=== PATIENT | female | born 2000 | race Caucasian/White ===

== ENCOUNTER 2023-08-12 00:29 | Emergency (ER) | payer MEDICAID, SELFPAY ==
[2023-08-12 00:34] VITALS: BP 98/40; PULSE 54; RESP 16; TEMP 36.8; O2SAT 98; BMI 23.1
[2023-08-12 00:53] LABS: Appearance Urine Clear; Color Urine Orange; Glucose Urine UA Negative (Negative); Leukocyte Esterase Urine Moderate (2+) (Negative); Nitrite Urine Positive (Negative); PH 5.5 (5.0-9.0); UMIC TRIGGER UACC YES; Urine Blood Negative (Negative); Urine Ketones Negative (Negative); Urine Protein Trace mg/dL (Neg-Trace)
[2023-08-12 01:04] LABS: Bacteria Urine None Seen (None Seen); Hyaline Casts Urine 0-2 /LPF (0-2); UACC Culture Trigger YES
== END 2023-08-12 01:54 | disposition left against medical advice (07) ==
PROVIDERS: Emergency Provider Emergency Medicine
DX: R30.0 Dysuria (principal); Z79.899 Other long term (current) drug therapy
CPT/HCPCS: 81001; 87086; 87088; 87186; 99282

== ENCOUNTER 2023-08-20 00:11 | Emergency (ER) | payer MEDICAID, SELFPAY ==
[2023-08-20 00:21] VITALS: BP 102/61; PULSE 72; RESP 18; TEMP 36.8; O2SAT 99; BMI 26.7
[2023-08-20 00:36] VITALS: BP 96/57; PULSE 74; RESP 16; TEMP 36.7; O2SAT 100
--- NOTE | 2023-08-20 00:41 | ED_ITS ---
HPI - General Adult General Chief complaint: Vaginal Bleeding Stated complaint: Possibly ? Vaginal issues Time Seen by Provider: 08/20/23 00:28 Source: patient History of Present Illness HPI narrative: 22-year-old female who denies significant past medical history, , presents complaining of pelvic cramping, vaginal spotting and a positive test. Patient states that she is actively trying to get . Today while she was sexually active with her significant other, she noticed she was having some spotting during intercourse. She denies any dyspareunia. She denies have any other spotting or bleeding since then. Patient states that 1 week ago she had urinary frequency. She was seen at our urgent care, diagnosed with UTI and placed on Bactrim for 3 days. Patient states her symptoms had resolved after that time. She also reports having a negative test at that time. She denies any fevers or chills. She does report intermittent episodes of nausea but no vomiting. She anticipates her menses to begin this Tuesday. Related Data Home Medications Medication Instructions Recorded Confirmed No Known Home Meds 01/26/21 01/26/21 Allergies Allergy/AdvReac Type Severity Reaction Status Date / Time No Known Allergies Allergy Verified 01/26/21 12:11 Review of Systems Review of Systems: Constitutional: No Weight loss, No Fever, No Chills, No Night Sweats, No Fatigue, No Malaise Cardiovascular: No Chest Pain, No SOB, No Edema, No Palpitations Respiratory: No Cough, No Sputum, No Dyspnea Gastrointestinal: No Nausea, No Vomiting, No Diarrhea, No Constipation, + Abdominal pain Genitourinary: No irregular bleeding, No Dysuria, No Hematuria, No Flank Pain Musculoskeletal: No joint pain, No Myalgias, No Joint Swelling PMF Past Medical History Medical History Unprotected sex Family History Family History Mother No problems noted. Father Unknown family medical history Son Biotin deficiency disease Social History Social History Alcohol intake: current Alcohol intake frequency: a few times a week Alcohol type: wine Smoked in Last 30 Days: No Use of substances other than those prescribed or required for medical reasons: No Advance Directives: No Advance Directives Information Provided: No Physical Exam ED Vital Signs: Vital Signs - 24 hr 08/20/23 00:21 08/20/23 00:36 Temperature 98.3 F 98.1 F Pulse Rate 72 74 Respiratory Rate 18 16 Blood Pressure 102/61 96/57 L Pulse Oximetry 99 100 Oxygen Delivery Method Room Air Room Air BMI result Body Mass Index 26.7 Const General: cooperative Resp Effort & Inspection: normal respiratory effort Auscultation: clear to auscultation bilaterally Cardio Rate: regular rate Rhythm: regular rhythm GI Other: Abdomen is diffusely soft and nontender. There is no peritoneal signs. No CVAT. Skin General skin exam: no rashes or lesions noted Psych Appearance: grossly normal Course Course Course Narrative: 1:15 a.m., August 20, 2023 urine hCG is negative. Urinalysis and quant are pending at this time. Reevaluation(s) Reevaluation #1: Reviewed urinalysis and urine as well as beta quant results with the patient and her significant other. Patient is not based on these lab values today. Patient has not had any vaginal bleeding or spotting while in the emergency department. She feels comfortable with discharge plan home will follow up with her OBGYN as needed. She will continue to monitor. No further questions at this time. Time: 01:35 Medical Decision Making Medical Decision Making [facility] Narrative: A 22-year-old female , with a positive home test, and associated vaginal spotting during intercourse today presents the emergency department for further evaluation. Check hCG and UA. Discussed with Dr. Diana who agrees with plan. Consider pelvic US however, if , likely very early but will wait for quant to determine. Differential Diagnosis Differential Diagnoses: The differential diagnosis associated with the presentation includes Ectopic UTI Menses Lab Data Labs: Lab Results 08/20/23 Range/Units 00:54 Beta HCG, Quant < 2 mIU/mL Urine Color Yellow Urine Appearance Clear Urine pH 7.5 (5.0-9.0) Ur Specific [place] 1.025 (1.005-1.025) Urine Protein Negative (Neg-Trace) mg/dL Urine Glucose (UA) Negative (Negative) mg/dL Urine Ketones Negative (Negative) mg/dL Urine Blood Moderate (2+) H (Negative) Urine Nitrite Negative (Negative) Ur Leukocyte Esterase Trace H (Negative) Urine RBC 0-2 (0-2) /HPF Urine WBC 0-5 (0-5) /HPF Ur Squamous Epith Cells 6-10 (0-2) /HPF Urine Bacteria Trace (None Seen) Hyaline Casts 0-2 (0-2) /LPF Urine Test NEGATIVE (NEGATIVE) Discharge Plan Discharge Clinical Impression: Abnormal vaginal bleeding Patient Disposition: Home, Self-Care Instructions: Menorrhagia (ED) Additional Instructions: Both your urine test and blood test are NEGATIVE today. Follow-up with your OBGYN. Follow-up with your primary care provider. Call this week to schedule a follow- up appointment. Return to the emergency department if you have any worsening of symptoms, or any concerns. Get well soon! Prescriptions: No Action No Known Home Meds
--- NOTE | 2023-08-20 00:42 | PC.NURSE ---
ed provider at bedside for primary eval; tech attempting to obtain lab work. pt reports spotting with chunks and lower abd. cramping onset today; + test at home. last menstruation 07/27/23. pt reports nausea denies v/d/cp/sob. pt reports recently finished po abx for uti; denies urinary sx at this time.
[2023-08-20 01:03] LABS: Appearance Urine Clear; Color Urine Yellow; Glucose Urine UA Negative (Negative); Leukocyte Esterase Urine Trace (Negative); Nitrite Urine Negative (Negative); PH 7.5 (5.0-9.0); Specific Gravity - Urine 1.025 (1.005-1.025); UMIC TRIGGER UACC YES; Urine Blood Moderate (2+) (Negative); Urine Ketones Negative (Negative); Urine Protein Negative (Neg-Trace)
[2023-08-20 01:05] LABS: UPreg QC Valid YES; Urine Pregnancy NEGATIVE (NEGATIVE)
[2023-08-20 01:27] LABS: HCG Quantitative < 2 mIU/mL
[2023-08-20 01:28] LABS: Bacteria Urine Trace (None Seen); Hyaline Casts Urine 0-2 /LPF (0-2); RBC Urine 0-2 /HPF (0-2); WBC Urine 0-5 /HPF (0-5)
--- OUTSIDE RECORDS SUMMARY | 2023-08-20 01:30 | XMS_ITS | Continuity of Care Document ---
Author Name Unknown Organization [facility] ter Address [address] [place] [id number]- Care Team Providers Care Ultrasonographer Name Role Phone Not on Staff, PCP Primary Care Physician Unavail able Encounter [facility] [place] Date(s): 08/30/22 - 08/30/[address] [id number]- Discharge Disposition: A-D/C Walkout Attending Physician: Not on Staff, Attending MD Admitting Physician: Not on Staff, Admitting MD Referring Physician: Not on Staff, Referring MD Allergies, Adverse Reactions, Alerts No Known Allergies Medications docusate-senna 50 mg-187 mg oral tablet 1 tablet, By Mouth, Daily at bedtime, # 60 tablet, 0 Refills, Maintenance, 09/10/20 10:01:00 EDT, Tablet, [id number], 1 tablet By Mouth Daily at bedtime, 150, cm, 09/09/20 3:08:00 EDT, Height, 81.5, kg, 09/09/20 3:08:00 EDT, Dry Weight Start Date: 09/10/20 Status: Ordered metroNIDAZOLE 500 mg oral tablet 1 tablet = 500 mg, By Mouth, Every 12 hours, # 10 tablet, 0 Refills, Maintenance, 09/10/20 9:20:00 EDT, Tablet, [id number], 150, cm, 09/09/20 3:08:00 EDT, Height, 81.5, kg, 09/09/20 3:08:00 EDT, Dry Weight Start Date: 09/10/20 Stop Date: 09/15/20 Status: Ordered MiraLax oral powder for reconstitution = 17 Gm, By Mouth, Daily, dissolve in water before taking, # 255 Gm, 0 Refills, Maintenance, 09/10/20 10:01:00 EDT, REC Powder, [id number], 17 Gm By Mouth Daily,Instr:dissolve in water beforetaking, 150, cm, 09/09/20 3:08:00 EDT, Height, 81.5... Start Date: 09/10/20 Status: Ordered PNV By Mouth, Daily, 0 Refills, Maintenance, 09/09/20 19:44:00 EDT Start Date: 09/09/20 Status: Ordered Vital Signs Most recent to oldest [Reference Range]: 1 Oxygen Saturation [94-100 %] 100 % (08/30/22 1:57 PM) Pulse Rate [55-90 bpm] 80 bpm (08/30/22 1:57 PM) Blood Pressure [90-138/55-84 mm Hg] 105/ 65mm Hg (08/30/22 1:57 PM) Respiratory Rate [16-30 br/min] 18 br/mi n (08/30/22 1:57 PM) Temperature [96.8-100.4 DegF] 98.0 DegF (08/30/22 1:57 PM) Mode of Delivery (Oxygen) Room air (08/30/22 1:57 PM) Blood pressure sites Arm, left (08/30/22 1:57 PM) Temperature Route Oral (08/30/22 1:57 PM) Social History Social History Type Response Sex Female Patient Care team information Personnel Name: Not on Staff, PCP
--- OUTSIDE RECORDS SUMMARY | 2023-08-20 01:31 | XMS_ITS | Continuity of Care Document ---
Author Name Unknown Organization [facility] ter Address [address] [place] [id number]- Care Team Providers Care Principal Quality Engineer Name Role Phone Not on Staff, PCP Primary Care Physician Unavail able [place] [facility] [place]/09[place] - 09/10/[address] [id number]- [facility] Discharge Disposition: A-D/C Home Attending Physician: Sandie Lim MD Admitting Physician: Sandie Lim MD Referring Physician: Sandie Lim MD Allergies, Adverse Reactions, Alerts Substance Reaction Severity Status NKA Active Medications docusate-senna 50 mg-187 mg oral tablet [...] Most recent to oldest [Reference Range]: 1 2 3 Height 150 cm (09/09/20 3:00 AM) Weight 81.5 kg (09/09/20 3:00 AM) Oxygen Saturation [94-100 %] 98 % (09/09/20 7:38 PM) 100 % (09/09/20 5:53 PM) 98 % (09/09/20 3:00 PM) Pulse Rate [55-90 bpm] 111 bpm *H* (09/09/20 3:00 AM) Body Mass Index [18.5-24.99] 36.22 *>HHI* (09/09/20 3:00 AM) Blood Pressure [71-110/30-71 mm Hg] 104/61mm Hg (09/10/20 8:56 AM) 89/50mm Hg (09/10/20 5:42 AM) 100/60mm Hg (09/09/20 7:38 PM) Respiratory Rate [16-30 br/min] 20 br/min (09/09/20 3:00 AM) Temperature [96.8-100.4 DegF] 98.3 DegF (09/10/20 8:56 AM) 98.0 DegF (09/10/20 5:42 AM) 98.1 DegF (09/09/20 5:53 PM) Blood pressure sites Arm, left (09/09/20 3:00 AM) Temperature Route Oral (09/10/20 8:56 AM) Oral (09/10/20 5:42 AM) Oral (09/09/20 5:53 PM) Dry Weight 81.5 kg (09/09/20 3:00 AM) Weight Obtained Via Patient/family state d (09/09/20 3:00 AM) Dry Weight Obtained Via Patient/family s tated (09/09/20 3:00 AM) Social History Social History Type Response Sex Female
== END 2023-08-20 01:45 | disposition home or self-care (01) ==
PROVIDERS: Emergency Provider Student in an Organized Health Care Education/Training Program
DX: N93.9 Abnormal uterine and vaginal bleeding, unspecified (principal)
CPT/HCPCS: 36415; 81001; 81003; 81025; 84702; 99283; 99284

== ENCOUNTER 2023-09-20 | Outpatient (REF) | payer MEDICAID, SELFPAY ==
[2023-09-21 12:02] LABS: Appearance Urine Turbid; Color Urine Yellow; Glucose Urine UA Negative (Negative); Leukocyte Esterase Urine Moderate (2+) (Negative); Nitrite Urine Negative (Negative); PH 8.5 (5.0-9.0); Specific Gravity - Urine 1.025 (1.005-1.025); UMIC TRIGGER UACC YES; Urine Blood Small (1+) (Negative); Urine Ketones Negative (Negative); Urine Protein 30 (1+) mg/dL (Neg-Trace)
[2023-09-21 12:04] LABS: Bacteria Urine 2+ (None Seen); Hyaline Casts Urine 0-2 /LPF (0-2); Squamous Epithelial Cell Urine 0-2 /HPF (0-2); UACC Culture Trigger YES; WBC Urine >50 /HPF (0-5)
== END 2023-09-20 00:01 | disposition home or self-care (01) ==
LOC: HO.HHCLNP
PROVIDERS: Visit Provider Internal Medicine
DX: N30.01 Acute cystitis with hematuria (principal)
CPT/HCPCS: 81001; 81003; 87086; 87088; 87186

== ENCOUNTER 2024-02-04 14:24 | Emergency (ER) | payer MEDICAID, SELFPAY ==
[2024-02-04 14:48] VITALS: BP 120/59; PULSE 56; RESP 18; TEMP 36.3; O2SAT 100; BMI 30.9
--- NOTE | 2024-02-04 14:48 | ED_ITS ---
HPI - General Adult General Chief complaint: Urogenital-Female Stated complaint: pelvic pain Time Seen by Provider: 02/04/24 16:17 Source: patient Mode of arrival: ambulatory Limitations: no limitations History of Present Illness HPI narrative: 23 year old female, , with no significant past medical history presents to the ED today for evaluation of vaginal dryness x7 months. States that it is painful to have intercourse due to the lack of natural vaginal lubrication. She has been trying over the counter lubricants without success. She is sexually active with her partner only. She does not use protection as they are trying to conceive however adds that over the past year she has had difficulty conceiving. Not on hormonal control. Her last child was born in 2021. No complications. LMP 1 month ago. Denies any miscarriages. She has not followed up with her OBGYN regarding any of these symptoms or concerns. She denies concern for STDs and does not wish to be tested at this time. Denies fever, chills, dysuria, hematuria, vaginal discharge, vaginal lesions, irregular vaginal bleeding. Vaccinations UTD. Related Data Home Medications Medication Instructions Recorded Confirmed No Known Home Meds 01/26/21 01/26/21 Allergies Allergy/AdvReac Type Severity Reaction Status Date / Time No Known Allergies Allergy Verified 02/04/24 14:51 Review of Systems Review of Systems: Constitutional: No fever, chills, fatigue, night sweats, weight changes ENT/Mouth: No ear pain, hearing loss, nasal congestion, sinus pain, rhinorrhea, sore throat Eyes: No eye pain, swelling, redness, vision changes, discharge Cardio: No chest pain, palpitations, RAZO, orthopnea, peripheral edema Pulm: No SOB, cough, sputum, wheezing, dyspnea, hemoptysis GI: No nausea, vomiting, hematemesis, abdominal pain, diarrhea, constipation, hematochezia, melena : No irregular bleeding, dysuria, frequency, urgency, hesitancy, hematuria, flank pain, urinary flow changes, urinary incontinence or retention, +vaginal dryness MSK: No back pain, neck pain, joint pain, myalgias Skin: No lesions, rashes Neuro: No weakness, numbness, paresthesias, LOC, dizziness, headache Psych: No anxiety/panic, depression, SI/HI, AH/VH All other systems reviewed and are negative. [facility] Past Medical History Attestation statement: The following information was validated with the patient. Source: old records reviewed and nursing notes reviewed Medical History Unprotected sex Family History Family History Mother No problems noted. Father Unknown family medical history Son Biotin deficiency disease Social History Social History Alcohol intake: current Alcohol intake frequency: a few times a week Alcohol type: wine Advance Directives: No Advance Directives Information Provided: No Physical Exam ED Vital Signs: Vital Signs - 24 hr 02/04/24 14:48 02/04/24 16:56 Temperature 97.3 F 97.8 F Pulse Rate 56 60 Respiratory Rate 18 16 Blood Pressure 120/59 L 115/60 Pulse Oximetry 100 Oxygen Delivery Method Room Air BMI result Body Mass Index 30.9 Vital signs stable, afebrile Const General: cooperative, healthy appearing, comfortable and no acute distress Orientation/consciousness: patient oriented x3 Limitations: no limitations HENMT Head: Yes normal to inspection, Yes normocephalic and Yes atraumatic Eyes General: appearance normal, both eyes and all related structures Conjunctivae: conjunctivae normal Sclerae: sclerae normal Pupils: Equal, round and reactive pupils present Neck Neck: Yes normal visual inspection, Yes full ROM and Yes no lymphadenopathy GI Other: + abdomen soft, nondistended, nontender to palpation, no rebound or guarding. Normoactive bowel sounds x4. Bladder not palpable. Other: + pelvic exam deferred per patient General: Yes no CVA tenderness Back/Spine/Pelvis Back: no CVA tenderness Skin General skin exam: no rashes or lesions noted Neuro General: patient oriented x3 and gait normal Cranial nerves: Yes Equal, round and reactive pupils present Extrem General: Yes normal to inspection Course Course Course Narrative: This is a rapid medical exam: Additional HPI, ROS, PE not included below will be deferred to primary provider. Patient is a 23-year-old female presenting to the ED with complaint of dyspaeunia for the past 6 months. Feels tearing sensation to inside of vagina. Denies bleeding or abnormal discharge. Complains of vaginal dryness. Gave 02/12/22. 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 Plan: will need pelvic exam, UA, urine Reevaluation(s) Reevaluation #1: 1634-- urine is negative for both infection and . I had an in-depth discussion with both patient and her partner. I offered to perform pelvic exam today however patient is requesting this be deferred today until she follows up with product info specialist. She is not concern for any sexually transmitted infections and is declining testing today. I advised her to follow-up with her OBGYN regarding vaginal dryness as etiology may be hormonal. Given inability to conceive for the past year, she will require further workup by OBGYN that can not be performed in the ED today. I have provided her with a referral to [facility] gynecology if she is unable to get in with her current doctor. Patient has remained stable throughout ED visit today. Discussed worrisome signs and symptoms and when to return to the ED. All questions answered at this time. Patient is agreeable with disposition and stable for discharge. Medical Decision Making Medical Decision Making [facility] Narrative: 23 year old female, , with no significant past medical history presents to the ED today for evaluation of vaginal dryness x7 months. Vital signs are stable. She is nontoxic appearing in no acute distress. Abdomen is soft, nondistended, nontender to palpation, normoactive bowel sounds x4. No CVAT. Pelvic exam deferred per patient. Differential diagnosis includes atrophic vaginitis, hormonal imbalance, sexually transmitted infection. Low suspicion for PID, UTI, pyelo, . Differential Diagnosis Differential Diagnoses: The differential diagnosis associated with the presentation includes As above Admission/Observation Not indicated Lab Data [facility] Lab Attestation statement: I reviewed the patient's lab results. As above Labs: Lab Results 02/04/24 Range/Units 15:21 Urine Color Yellow Urine Appearance Clear Urine pH 7.0 (5.0-9.0) Ur Specific [place] 1.025 (1.005-1.025) Urine Protein Negative (Neg-Trace) mg/dL Urine Glucose (UA) Negative (Negative) mg/dL Urine Ketones Negative (Negative) mg/dL Urine Blood Negative (Negative) Urine Nitrite Negative (Negative) Ur Leukocyte Esterase Negative (Negative) Urine Test NEGATIVE (NEGATIVE) Independent Historian Clinical information obtained from an independent historian. History obtained from or confirmed by: Spouse (Partner) Social Determinants Patient?s care significantly limited by Social Determinants of Health including: Other Social Determinant of Health Discharge Plan Discharge Clinical Impression: Vaginal dryness Patient Disposition: Home, Self-Care Additional Instructions: Your urine was negative for infection and . Please follow-up with your primary care provider and OBGYN regarding symptoms. If you are unable to get in with your product info specialist, a referral has been provided to you. You may call them to establish care. Please return with new or worsening symptoms. The case of an emergency call 911. Prescriptions: No Action No Known Home Meds Referrals: Jorge Roberto MD [Physician] - Interventions: ED Discharge Assessment Last Done: 02/04/24 16:56 Discharge Date/Time: 02/04/24 17:00
[2024-02-04 15:31] LABS: Appearance Urine Clear; Color Urine Yellow; Glucose Urine UA Negative (Negative); Leukocyte Esterase Urine Negative (Negative); Nitrite Urine Negative (Negative); Specific Gravity - Urine 1.025 (1.005-1.025); Urine Blood Negative (Negative); Urine Ketones Negative (Negative); Urine Protein Negative (Neg-Trace)
[2024-02-04 15:34] LABS: UPreg QC Valid YES; Urine Pregnancy NEGATIVE (NEGATIVE)
[2024-02-04 16:56] VITALS: BP 115/60; PULSE 60; RESP 16; TEMP 36.6
== END 2024-02-04 17:00 | disposition home or self-care (01) ==
PROVIDERS: Registered Nurse Emergency; Emergency Provider Internal Medicine
DX: N90.9 Noninflammatory disorder of vulva and perineum, unspecified (principal)
CPT/HCPCS: 81003; 81025; 99282

== ENCOUNTER 2024-03-20 19:52 | Emergency (ER) | payer MEDICAID, SELFPAY ==
[2024-03-20 21:03] VITALS: BP 118/69; PULSE 69; RESP 16; TEMP 35.9; O2SAT 97
[2024-03-20 21:59] LABS: Appearance Urine Clear; Color Urine Yellow; Glucose Urine UA Negative (Negative); Leukocyte Esterase Urine Negative (Negative); Nitrite Urine Negative (Negative); PH 5.5 (5.0-9.0); Specific Gravity - Urine >= 1.030 (1.005-1.025); Urine Blood Negative (Negative); Urine Ketones 40 mg/dL (Negative); Urine Protein Negative (Neg-Trace)
[2024-03-21 01:29] VITALS: BP 118/60; PULSE 65; RESP 16; TEMP 36.4; O2SAT 99
--- NOTE | 2024-03-21 02:31 | ED.FEMALEGU ---
HPI - Female Genitourinary General Chief complaint: Urogenital-Female Stated complaint: chlamydia test Time Seen by Provider: 03/21/24 02:20 Source: patient Mode of arrival: ambulatory Limitations: no limitations History of Present Illness HPI Narrative: Patient comes to the emergency room concerned that recently on March 16 she tested positive for chlamydia induced. Patient states that 10 months ago when she got tested, she was negative. Patient's tested negative for chlamydia. The couple is arguing about infidelity. Both of them already being treated with antibiotics for chlamydia. They would like to be retested. Patient is adamant that she did not have sexual relations with anybody other than her . Patient has no symptoms other than the vaginal itching which she was diagnosed with bacterial vaginosis. Related Data Home Medications ?Medication ?Instructions ?Recorded ?Confirmed No Known Home Meds 01/26/21 01/26/21 Allergies Allergy/AdvReac Type Severity Reaction Status Date / Time No Known Allergies Allergy Verified 03/20/24 21:06 Review of Systems Review of Systems: Constitutional : No Weight loss, No Fever, No Chills, No Night Sweats, No Fatigue, No Malaise ENT/Mouth : No Hearing loss, No Ear Pain, No Nasal Congestion, No Sinus Pain, No Hoarseness, No sore throat, No Rhinorrhea, No Swallowing Difficulty Eyes: No Eye Pain, No Swelling, No Redness, No Foreign Body, No Discharge, No Vision Changes Cardiovascular : No Chest Pain, No SOB, No Dyspnea on Exertion, No Orthopnea, No Edema, No Palpitations Respiratory : No Cough, No Sputum, No Wheezing, No Smoke Exposure, No Dyspnea Gastrointestinal : No Nausea, No Vomiting, No Diarrhea, No Constipation, No abdominal Pain, No Hematochezia, No Melena Genitourinary : vaginal itching which she is already being treated, No Dysuria, No Urinary Frequency, No Hematuria, No Urinary Incontinence, No Urgency, No Flank Pain, No Urinary Flow Changes, No Hesitancy Musculoskeletal : No joint pain, No Myalgias, No Joint Swelling Skin : No Skin Lesions, No rash Neuro : No Weakness, No Numbness, No Paresthesias, No Loss of Consciousness, No Dizziness, No Headache Psych : No Anxiety/Panic, No Depression, No SI/HI/AH/VH, No Social Issues, Heme/Lymph: No Bruising, No Bleeding,No Lymphadenopathy Endocrine : No Polyuria, No Polydipsia, No Temperature Intolerance [facility] Past Medical History Medical History Unprotected sex Family History Family History Mother No problems noted. Father Unknown family medical history Son Biotin deficiency disease Social History Social History Alcohol intake: current Alcohol intake frequency: a few times a week Alcohol type: wine Smoked in Last 30 Days: No Use of substances other than those prescribed or required for medical reasons: No Do you have a plan to hurt others: No Plan Patient : No Physical Exam Vital Signs: Vital Signs: Last Vital Signs Temp 97.6 F 03/21/24 01:29 Pulse 65 03/21/24 01:29 Resp 16 03/21/24 01:29 BP 118/60 03/21/24 01:29 Pulse Ox 99 03/21/24 01:29 O2 Del Method Room Air 03/21/24 01:29 BMI result Body Mass Index s Const: Other: Appearance: Alert. Oriented X3. No acute distress. Eyes: Pupils equal, round and reactive to light. ENT: Pharynx normal. Neck: Normal inspection. Neck supple. No lymph nodes noted. No crepitus CVS: Normal heart rate and rhythm. Pulses normal. Normal S1 and S2 Respiratory: No respiratory distress. Breath sounds normal. No Wheezing. No rales Abdomen: Soft and nontender. No rigidity. No distention. Skin: Skin warm and dry. Normal skin color. Normal skin turgor. Extremities: No lower extremity edema. No Lacerations. No Rash Neuro: Oriented X 3. No motor deficit. No sensory deficit. Moving all extremities. No slurred speech. CN 2 through 12 grossly intact Psych: calm, cooperative, normal affect Medical Decision Making Medical Decision Making [facility] Narrative: - ptient states that she and her are already being treated. However, they her having marital problems because she tested positive for chlamydia. I discussed with the patient that sometimes tests can be false positives. It is possible also that the 1st time that the patient was treated, she was not positive yet and then turned positive and she has been a carry since then. This course of action at this time is to repeat the test. Both parties agreeable with getting retested - both patient and her are already being treated, no need for further treatment at this time. Serology labs will be pending for couple of days. Couple aware. Lab Data Labs: Lab Results 03/20/24 Range/Units 21:46 Urine Color Yellow Urine Appearance Clear Urine pH 5.5 (5.0-9.0) Ur Specific [place] >= 1.030 H (1.005-1.025) Urine Protein Negative (Neg-Trace) mg/dL Urine Glucose (UA) Negative (Negative) mg/dL Urine Ketones 40 (Negative) mg/dL Urine Blood Negative (Negative) Urine Nitrite Negative (Negative) Ur Leukocyte Esterase Negative (Negative) Discharge Plan Discharge Clinical Impression: Sex counseling Prescriptions: No Action No Known Home Meds Print Language: Bulgarian
[2024-03-21 03:01] VITALS: BP 119/68; PULSE 72; RESP 18; TEMP 36.6; O2SAT 98
[2024-03-21 12:21] LABS: CT PCR DETECTED (Not Detect.); NG PCR NOT DETECTED (Not Detect.)
--- NOTE | 2024-03-23 09:12 | ED_ITS ---
HPI - Female Genitourinary General Chief complaint: Urogenital-Female Stated complaint: chlamydia test Time Seen by Provider: 03/21/24 02:20 Source: patient Mode of arrival: ambulatory Limitations: no limitations Related Data Home Medications ?Medication ?Instructions ?Recorded ?Confirmed No Known Home Meds 01/26/21 01/26/21 Allergies Allergy/AdvReac Type Severity Reaction Status Date / Time No Known Allergies Allergy Verified 03/20/24 21:06 [facility] Past Medical History Medical History Unprotected sex Family History Family History Mother No problems noted. Father Unknown family medical history Son Biotin deficiency disease Social History Social History Alcohol intake: current Alcohol intake frequency: a few times a week Alcohol type: wine Smoked in Last 30 Days: No Use of substances other than those prescribed or required for medical reasons: No Advance Directives: No Advance Directives Information Provided: No Do you have a plan to hurt others: No Plan Patient : No Physical Exam Vital Signs: Vital Signs: Last Vital Signs Temp 97.9 F 03/21/24 03:01 Pulse 72 03/21/24 03:01 Resp 18 03/21/24 03:01 BP 119/68 03/21/24 03:01 Pulse Ox 98 03/21/24 03:01 O2 Del Method Room Air 03/21/24 01:29 BMI result Body Mass Index s Course Reevaluation(s) Reevaluation #1: Patient + for CT --> she is on doxy now sent by OBGYN supposed to finish atbx on Tuesday. Advised to follow up with PCP and OBGYN and to practice safe sexual practices. State mandated form filled out. Time: 09:15 Medical Decision Making Lab Data Labs: Lab Results 03/20/24 Range/Units 21:46 Urine Color Yellow Urine Appearance Clear Urine pH 5.5 (5.0-9.0) Ur Specific Story >= 1.030 H (1.005-1.025) Urine Protein Negative (Neg-Trace) mg/dL Urine Glucose (UA) Negative (Negative) mg/dL Urine Ketones 40 (Negative) mg/dL Urine Blood Negative (Negative) Urine Nitrite Negative (Negative) Ur Leukocyte Esterase Negative (Negative) Chlam trachomat DNA PCR DETECTED A (Not Detect.) N.gonorrhoeae DNA (PCR) NOT DETECTED (Not Detect.) Discharge Plan Discharge Clinical Impression: Sex counseling, Chlamydia Patient Disposition: Home, Self-Care Instructions: Safe Sex Practices (ED) Prescriptions: No Action No Known Home Meds Interventions: ED Discharge Assessment Last Done: 03/21/24 03:01 Discharge Date/Time: 03/21/24 03:02 Print Language: Setswana
== END 2024-03-21 03:02 | disposition home or self-care (01) ==
PROVIDERS: Emergency Provider Emergency Medicine
DX: A74.9 Chlamydial infection, unspecified (principal)
CPT/HCPCS: 0353U; 81003; 99283; 99284

== ENCOUNTER 2024-09-12 12:38 | Outpatient (REF) | payer MEDICAID, SELFPAY ==
[2024-09-12 13:27] LABS: MANUAL DIFF FLAG NO
[2024-09-12 13:36] LABS: Basophils Percent Auto 0.5 % (0-2); Eosinophils Absolute Auto 0.1 X10*3/uL (0.0-0.4); Eosinophils Percent Auto 1.2 % (0-4); Hematocrit 38.8 % (37.0-47.0); Hemoglobin 12.8 g/dl (12.0-16.0); Imm Gran Abs Auto 0.01 X10*3/uL (0.00-0.03); Imm Gran Pct Auto 0.2 % (0.0-0.4); Lymphocytes Absolute Auto 2.4 X10*3/uL (1.2-4.9); Lymphocytes Percent Auto 36.5 % (20-40); Mean Corpuscular Hemoglobin 28.4 pg (27.0-33.0); Mean Corpuscular Volume 86.2 fL (80.0-98.0); Mean Platelet Volume 11.2 fL (9.4-12.3); Monocytes Absolute Auto 0.4 X10*3/uL (0.1-1.2); Monocytes Percent Auto 5.6 % (2-11); Neutrophils Absolute Auto 3.7 x10*3/uL (2.0-8.3); Platelet Count 243 X10*3/uL (160-400); Red Cell Distribution Width 12.7 % (11.0-16.0); White Blood Count 6.6 X10*3/uL (4.8-10.8)
[2024-09-12 14:38] LABS: Ferritin 15 ng/mL (10-122); TSH reflex Free T4 0.63 uIU/mL (0.32-4.0)
[2024-09-12 14:50] LABS: Folate 12.1 ng/mL (> or = 4.0); Vitamin B12 567 pg/mL (200-900)
[2024-09-13 08:33] LABS: Syphilis Screen Nonreactive (Nonreactive)
[2024-09-13 14:33] LABS: Bacterial Vaginosis PCR POSITIVE (Negative); Candida Group PCR DETECTED (Not Detect); Candida glab krusei PCR NOT DETECTED (Not Detect); Trichomonas vaginalis PCR NOT DETECTED (Not Detect)
[2024-09-13 14:45] LABS: CT PCR NOT DETECTED (Not Detect.); NG PCR NOT DETECTED (Not Detect.)
== END 2024-09-12 12:39 | disposition home or self-care (01) ==
LOC: HO.HHCL 12:38
PROVIDERS: Visit Provider Internal Medicine
DX: R53.82 Chronic fatigue, unspecified (principal); N94.10 Unspecified dyspareunia
CPT/HCPCS: 0352U; 36415; 82607; 82728; 82746; 84443; 85025; 86780; 87491; 87591

== ENCOUNTER 2025-03-15 14:31 | Emergency (ER) | payer MEDICAID, SELFPAY ==
[2025-03-15 14:34] VITALS: BP 112/69; PULSE 77; RESP 18; TEMP 37; O2SAT 97; BMI 30.7
[2025-03-15 15:08] LABS: MANUAL DIFF FLAG NO
[2025-03-15 15:10] LABS: Basophils Percent Auto 0.3 % (0-2); Eosinophils Absolute Auto 0.1 X10*3/uL (0.0-0.4); Eosinophils Percent Auto 1.4 % (0-4); Hematocrit 41.7 % (37.0-47.0); Hemoglobin 13.9 g/dl (12.0-16.0); Imm Gran Abs Auto 0.01 X10*3/uL (0.00-0.03); Imm Gran Pct Auto 0.2 % (0.0-0.4); Lymphocytes Absolute Auto 2.6 X10*3/uL (1.2-4.9); Lymphocytes Percent Auto 43.2 % (20-40); Mean Corpuscular HGB Conc 33.3 g/dl (31.0-35.0); Mean Corpuscular Hemoglobin 28.3 pg (27.0-33.0); Mean Corpuscular Volume 84.8 fL (80.0-98.0); Mean Platelet Volume 10.7 fL (9.4-12.3); Monocytes Absolute Auto 0.3 X10*3/uL (0.1-1.2); Monocytes Percent Auto 4.2 % (2-11); Neutrophils Percent Auto 50.7 % (45-73); Platelet Count 236 X10*3/uL (160-400); Red Blood Count 4.92 X10*6/uL (4.20-5.50); White Blood Count 5.9 X10*3/uL (4.8-10.8)
[2025-03-15 15:31] LABS: Alanine Aminotransferase 26 U/L (0-31); Albumin Level 4.4 g/dL (3.5-5.0); Anion Gap 12 (12-20); Aspartate Amino Transferase 24 U/L (5-31); Bilirubin Total 0.3 mg/dL (0.0-1.0); Blood Urea Nitrogen 13 mg/dL (9-16); Calcium 9.4 mg/dL (8.4-10.2); Carbon Dioxide 26 mmol/L (22-29); Chloride 106 mmol/L (96-108); Creatinine Clr Calc Pharmacy 140.2; Estimated Glomerular Filt Rate > 60; Glucose Random 90 mg/dL (60-115); HCG Quantitative < 2 mIU/mL; Sodium 140 mmol/L (135-145); Total Protein 7.4 g/dL (6.5-8.0)
[2025-03-15 16:00] LABS: Alkaline Phosphatase 86 U/L (39-117)
--- NOTE | 2025-03-15 16:17 | ED.GENADULT ---
HPI - General Adult General Chief complaint: General Medical Stated complaint: Late Period, Negative Test Time Seen by Provider: 03/15/25 15:45 Source: patient Mode of arrival: ambulatory Limitations: no limitations History of Present Illness ED Provider: BEBETO SHEARER PA-C HPI narrative: 24-year-old female presents to the ED today requesting blood test. She reports irregular menses over the past few months. At one point she was having a period every 2 weeks. She states she was supposed to start her period 14 days ago however is late. She reports 2- home test today. She would like to have her blood drawn to check for . She denies any physical concerns at present. She admits to unprotected intercourse with her one male partner. She is not on control. She denies fever, chills, abdominal pain/cramping, urinary symptoms, vaginal bleeding or discharge. Related Data Home Medications ?Medication ?Instructions ?Recorded ?Confirmed No Known Home Meds 01/26/21 01/26/21 Allergies Allergy/AdvReac Type Severity Reaction Status Date / Time No Known Allergies Allergy Verified 03/15/25 14:37 Review of Systems Review of Systems: Yes all other systems are reviewed and are negative PMFSH Past Medical History Attestation statement: The following information was validated with the patient. Source: old records reviewed and nursing notes reviewed Medical History Unprotected sex Family History Family History Mother No problems noted. Father Unknown family medical history Son Biotin deficiency disease Social History Social History Alcohol intake: current Alcohol intake frequency: a few times a week Alcohol type: wine Advance Directives: No Advance Directives Information Provided: No Physical Exam ED Vital Signs: Vital Signs - 24 hr 03/15/25 14:34 03/15/25 16:26 Temperature 98.6 F 98.6 F Pulse Rate 77 77 Respiratory Rate 18 18 Blood Pressure 112/69 112/69 Pulse Oximetry 97 97 Oxygen Delivery Method Room Air Room Air BMI result Body Mass Index 30.7 vital signs stable General: Well appearing, in no acute distress. Skin: Warm, dry, intact. No rashes or lesions. Head: Normocephalic, atraumatic. EENT: Hearing is intact b/l. Conjunctiva clear. PERRLA. EOM intact. Moist mucous membranes.? Cardiac: Chest wall symmetric. RRR. Lungs: Normal respiratory effort without accessory muscle use. CTA bilaterally Abdomen: Soft, non-tender, non-distended. No rebound tenderness or guarding. Positive BS x4. Ext: Upper and lower extremities atraumatic, without tenderness, deformity, swelling or erythema Neuro: AOx3. Normal speech. Ambulating with steady gait. Course Course Course Narrative: CBC without leukocytosis or left shift. No anemia. H&H stable. Chemistry without acute electrolyte abnormality requiring intervention. No GARY. Liver function WNL. Beta quant undetectable. > patient stable. No complaints. She has a follow up appointment with her PCP on April 03 to discuss fertility. advised to keep appointment. Patient has remained stable throughout ED visit today. Discussed worrisome signs and symptoms and when to return to the ED. All questions answered at this time. Patient is agreeable with disposition and stable for discharge. Medical Decision Making Medical Decision Making [facility] Narrative: 24-year-old female presents to the ED today requesting blood test. Vital signs stable. Afebrile. She is nontoxic appearing in no acute distress. Physical exam benign. Plan for basic labs, hCG, re-evaluation. Differential Diagnosis Differential Diagnoses: The differential diagnosis associated with the presentation includes as above. Admission/Observation Consideration of admission/observation: Escalation of care including admission/observation considered Lab Data [facility] Lab Attestation statement: I reviewed the patient's lab results. As above 03/15/25 15:04 03/15/25 15:03 Labs: Lab Results 03/15/25 03/15/25 Range/Units 15:03 15:04 WBC 5.9 (4.8-10.8) X10*3/uL RBC 4.92 (4.20-5.50) X10*6/uL Hgb 13.9 (12.0-16.0) g/dl Hct 41.7 (37.0-47.0) % MCV 84.8 (80.0-98.0) fL MCH 28.3 (27.0-33.0) pg MCHC 33.3 (31.0-35.0) g/dl RDW 13.0 (11.0-16.0) % Plt Count 236 (160-400) X10*3/uL MPV 10.7 (9.4-12.3) fL Immature Gran % (Auto) 0.2 (0.0-0.4) % Neut % (Auto) 50.7 (45-73) % Lymph % (Auto) 43.2 H (20-40) % Dyer % (Auto) 4.2 (2-11) % Eos % (Auto) 1.4 (0-4) % Baso % (Auto) 0.3 (0-2) % Lymph # (Auto) 2.6 (1.2-4.9) X10*3/uL Dyer # (Auto) 0.3 (0.1-1.2) X10*3/uL Eos # (Auto) 0.1 (0.0-0.4) X10*3/uL Baso # (Auto) 0.0 (0.0-0.2) X10*3/uL Abs Immat Gran (auto) 0.01 (0.00-0.03) X10*3/uL Absolute Neuts (auto) 3.0 (2.0-8.3) x10*3/uL Absolute Nucleated RBC 0.000 (0.0-0.012) X10*3/uL Nucleated RBC % (auto) 0.0 (0.0-0.2) /100WBC Sodium 140 (135-145) mmol/L Potassium 4.0 (3.3-5.1) mmol/L Chloride 106 (96-108) mmol/L Carbon Dioxide 26 (22-29) mmol/L Anion Gap 12 (12-20) BUN 13 (9-16) mg/dL Creatinine 0.69 (0.5-1.4) mg/dL Estim Creat Clear Calc 140.2 Estimated GFR > 60 Random Glucose 90 (60-115) mg/dL Calcium 9.4 (8.4-10.2) mg/dL Total Bilirubin 0.3 (0.0-1.0) mg/dL AST 24 (5-31) U/L ALT 26 (0-31) U/L Alkaline Phosphatase 86 (39-117) U/L Total Protein 7.4 (6.5-8.0) g/dL Albumin 4.4 (3.5-5.0) g/dL Beta HCG, Quant < 2 mIU/mL Social Determinants Patient?s care significantly limited by Social Determinants of Health including: Other Social Determinant of Health Critical Care Time Critical Care Time Critical Care Time: No Discharge Plan Discharge Clinical Impression: Irregular menses Patient Disposition: Home, Self-Care Additional Instructions: Your blood work today is reassuring. Your serum test is negative. Keep your appointment with your doctor on April 03. I have also provided you with a referral to an OBGYN. Call them to establish care. They will not call you. Return with any new or worsening symptoms. In the case of an emergency call 911. Prescriptions: No Action No Known Home Meds Referrals: Physician,Unknown J [Primary Care Provider] - Stand Alone Forms: Work/School Release Interventions: ED Discharge Assessment Last Done: 03/15/25 16:26 Discharge Date/Time: 03/15/25 16:26 Print Language: Lithuanian
[2025-03-15 16:26] VITALS: BP 112/69; PULSE 77; RESP 18; TEMP 37; O2SAT 97
== END 2025-03-15 16:26 | disposition home or self-care (01) ==
PROVIDERS: Physician Assistant Medical; Emergency Provider Emergency Medicine
DX: N92.6 Irregular menstruation, unspecified (principal)
CPT/HCPCS: 36415; 80053; 84702; 85025; 99282; 99283

== ENCOUNTER 2025-04-03 11:15 | Outpatient (REF) | payer MEDICAID, SELFPAY ==
--- OUTSIDE RECORDS SUMMARY | 2025-04-03 12:18 | XMS_ITS | Clinical Summary ---
Author Organization [employer] Address [address] [place] [address] [address] [place] [address] Care Team Providers Care Saturator Tender Name Role Phone Edith Steel MD Primary Care Provider Allergies No known active allergies Medications * This document contains information received from the source organization and may not represent a complete record from that organization. ibuprofen 800 MG tablet TOME RENETTA TABLETA FERNANDO VECES AL D A 02/14/2022 Active hydrocortisone (Anusol-HC) 2.5 % rectal creamIndication s:External hemorrhoid Insert into the rectum 2 times daily. 28 g 1 01/30/2025 Active Active Problems Problem Noted Date Diagnosed Date Encounter for Papanicolaou s mear for cervical cancer screening 04/03/2025 Assessment & Plan (04/03/2025 11:01 AM EDT): Pap smear performed today, obtained STI add on from pap plus BV panel Also ordered RPR, HIV, Hep C testing Plan to f/u with testing results. If normal, repeat pap in 3 years. Encounter for screening exam ination for sexually transmitted disease 04/03/2025 Healthcare maintenance 04/03/2025 Assessment & Plan (04/03/2025 11:03 AM EDT): Plan to obtain routine bloodwork including A1c due to irregular periods and recurrent BV/yeast. Plan to f/u with test results. 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 We will also rule out infectious cause for pain. Based on results will consider recurrent Vaginitis tx, dilators, or vaginal estrogen therapy. Assessment & Plan (09/12/2024 11:46 AM EDT): R/O vaginitis order BV and follow up Chlamydia test if cured. Advised to use lubricant gels. R/O depression and follow up with PCP. Acute cystitis with hematuria 09/20/2023 Assessment & Plan (09/20/2023 8:20 PM EDT): Rx macrobid x 7d, send urine for culture We discussed after postcoital hygiene, keep sexual toys cleaned if used. Vaginal discharge 05/06/2023 Assessment & Plan (09/20/2023 8:22 PM EDT): Not at this time. I advised her to [facility] to get vaginal swab as soon as she feels the fishy vaginal smell or any other vaginal issue. She was already treated for prema vaginitis 3m ago Education re STI check and rx if needed ( I told her to get STI tested, pending since last month). Assessment & Plan (05/06/2023 2:46 PM EDT): STD panel ordered counseling done I will treat empirically for yeast infection Patient will be contacted with results Chronic fatigue 02/08/2023 Assessment & Plan (09/12/2024 1:54 PM EDT): R/O chronic conditions such as anemia, Hypothyroidism, etc. It is most likely related to major depression, PHQ9 is 17, she feels safe at home, will refer to for further evaluation, follow up with me or PCP in 2-3 weeks. Advised to increase water intake, healthy meals, and exercise. FU re weight reduction with PCP, after labs are done Assessment & Plan (02/08/2023 12:07 PM EDT): Check TSH, CBC, BMP, Vit D Encouraged exercise and finding things that she was excited about for herself Astigmatism 08/10/2017 Overweight 08/10/2017 Assessment & Plan (02/08/2023 12:06 PM EDT): Pt wants to gain weight, educated that her weight is appropriate for her height She would like Ensure to gain weight, explained that eating proper nutrition, whole foods would be the overall healthiest thing for her Developmental academic disorder 01/21/2014 Encounters Date Type Department Care Team Description 04/03/2025 10:15 AM EDT Procedure Visit [facility] [address] [place] [address] James Laird CNP Encounter for Papanicolaou smear for cervical cancer screening (Primary Dx); Encounter for screening examination for sexually transmitted disease; Healthcare maintenance; Dyspareunia in female 04/03/2025 Travel 03/07/2025 Telephone [facility] [address] [place] [address] Edith Steel MD Chart Prep 02/14/2025 1:00 PM EDT Office Visit [facility] OPT[facility] [address] [place] [address] Baltazar, Norma, OD Myopia of both eyes (Primary Dx); 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 Travel 02/01/2025 Population Health Risk Score [facility] Department [address] [id number] Provider, Population Health Generic 01/30/2025 3:45 PM EDT Office Visit [facility] [address] [place] [address] James Laird CNP Irregular periods (Primary Dx); External hemorrhoid; Vaginal dryness 01/30/2025 Travel 01/29/2025 Telephone [facility] [address] [place] [address] Edith Steel MD No Show 01/24/2025 Telephone [facility] [address], [place] [phone] Edith Steel MD Nurse Triage from Last 3 Months Immunizations Immunization Administration Dates Next Due DTaP 06/13/2006 DTaP / Hep B / IPV 05/25/2005,04/13/2005, 005 HPV 9-Valent 10/08/2016 HPV, Quadrivalent 03/26/2014,01/21/2014 Hep A, ped/adol, 2 dose 12/27/2018,08/10/2017 Hep B, Adolescent or Pediatric 09/28/2005 Hib (HbOC) 04/13/2005,12/29/2004 IPV 09/28/2005 Influenza injectable quadriv alent preservative free 12/27/2018,08/10/2017 Influenza, IIV3, injectable 10/25/2011 MMR 09/28/2005,12/29/2004 Meningococcal MCV4P ACYW-135 12/27/2018,01/22/20 14 Pneumococcal Conjugate PCV 7 04/13/2005,12/29/19 05 Tdap 12/22/2021,07/24/2020,01/21/2014 Varicella 10/25/2011,04/13/2005 Social History Tobacco Use Types Packs/Day Years Used Date Smoking Tobacco: Never Passive Smoke Exposure: Never Smokeless Tobacco: Never Tobacco Cessation:Counseling Given: Not Answered Alcohol Use Standard Drinks/Week Comments Never 0 (1 standard drink = 0.6 oz pur e alcohol) Depression Answer Date Recorded Patient Health Questionnaire-9 Score 17 09/12/2024 Patient Health Questionnaire-9 Score 17 09/12/2024 Last PHQ-9: Questionnaire Data Not on file 1 Housing Stability Answer Date Recorded What is your housing situation today? I have fabi sing 12/27/[address] you li ve. Do you have problems with any of the following? None of the above 12/27/2023 Food Insecurity Answer Date Recorded Within the past 12 months, y ou worried that your food would run out before you got money to buy more: Never True 12/27/2023 Within the past 12 months,th e food you bought just didn't last and you didn't have enough money to get more: Never True 04/2024 Transportation Answer Date Recorded In the past 12 months, has l ack of transportation kept you from medical appts, meetings, work or from getting things needed for daily living? No 12/27/2023 Utilities Answer Date Recorded In the past 12 months, has t he electric, gas, oil or water company threatened to shut off services in your home? No 12/27/2023 Depression Answer Date Recorded Patient Health Questionnaire-2 Score 6 09/12/2024 Comments No Intention Date Recorded Ambivalent about becoming (find ing) 04/03/2025 Sex and Gender Information Value Date Recorded Sex Assigned at Female 09/20/2022 10:18 AM EDT Legal Sex Female 10:18 AM EDT Gender Identity Choose not to disclose 10:18 AM EDT Sexual Orientation Choose not to disclose 2021 10:18 AM EDT Last Filed Vital Signs Vital Sign Reading Time Taken Comments Blood Pressure 104/66 04/03/2025 10:15 AM EDT Pulse 65 04/03/2025 10:15 AM EDT Temperature 36.5 ??C (97.7 ??F) 04/03/2025 10:15 AM E DT Respiratory Rate 18 04/03/2025 10:15 AM EDT Oxygen Saturation 99% 04/03/2025 10:15 AM EDT Inhaled Oxygen Concentration - - Weight 85.3 kg (188 lb) 04/03/2025 10:15 AM EDT Height 152.4 cm (5') 04/03/2025 10:15 AM EDT Body Mass Index 36.72 04/03/2025 10:15 AM EDT Plan of Treatment Upcoming Encounters Date Type Department Care Team (Late st Contact Info) Description 04/19/2025 2:30 PM EDT Office Visit [facility] [address] [place] [phone] Edith Steel MD [address] [place] [phone] 04/23/2025 9:00 AM EDT Office Visit [facility] [address] [place] [phone] Alberta Domingo CNM [address] [place] [address] 06/17/2025 1:00 PM EDT Office Visit [facility] OPTOM[facility] [address] [place] [address] Norma Ledesma, OD [address] [place] [address] Health Maintenance Due Date Last Done Comments HIV Screening 2001 Alcohol/Substance Use Screening 2013 Meningococcal B Vaccine (1 of 2 - Standard) 2017 Hepatitis C Screening 2019 Pap Smear 2022 COVID-19 Vaccine ( season) 2024 Influenza Vaccine (#1) 2024 9, 08/10/2017, 10/25/2011 SDOH Screening 02/13/2025 02/14/2024 Chlamydia and Gonorrhea Screening 09/12/2025 09/12/2024, 03/20/2024, 05/06/2023 Depression Screening 09/12/2025 09/12/2024, 09/12/20 Family Planning (PISQ) 04/03/2026 04/03/2025 Tobacco Screening 04/03/2026 04/03/2025 DTaP/Tdap/Td Vaccines (8 - Td or Tdap) 12/22/2031 12/22/2021, 07/24/2020, 01/21/2014, Additional history exists Zoster Vaccines (1 of 2) 2051 RSV Patients and Patients Aged 60 years or older (1 - 1-dose 75+ series) 2076 HIB Vaccines Completed 04/13/2005, 12/29/2004 Pneumococcal Vaccine: Pediatrics (0 to 5 Years) and At-Risk Patients (6 to 49) Years) Aged Out 04/13/2005, 12/29/2004 No longer eligibl e based on patient's age to complete this topic Hepatitis B Vaccines Completed 09/28/2005, 05/25/2005, 04/13/2005, Additional history exists IPV Vaccines Completed 09/28/2005, 03/2005, 04/13/2005, Additional history exists HPV Vaccines Completed 10/08/2016, 04/2014, 01/21/2014 Hepatitis A Vaccines Completed 12/27/2018, 08/10/20 17 Meningococcal Vaccine Completed 12/27/2018, 014 RSV under 20 months Aged Out No longe r eligible based on patient's age to complete this topic Rotavirus Vaccines Aged Out No longer eligible based on patient's age to complete this topic Procedures Procedure Name Priority Date/Time Associated Diagnosis Comments OCT, OPTIC NERVE - OU - BOTH EYES Routine 02/14/2025 1:00 PM EDT Anomalous optic nerve (CMS/HCC) POCT , URINE Routine 01/30/2025 5:24 PM EDT Irregular periods CHLAMYDIA/N. GONORRHOEAE RNA, TMA, UROGENITAL Routine 09/12/2024 12:18 PM EDT Dyspareunia in female from Last 3 Months or Most Recently Relevant to Health Maintenance Results * OCT, Optic Nerve - OU - Both Eyes (02/14/2025 1:00 PM EDT) Narrative Norma Ledesma, OD - 02/26/2025 1:54 PM EDT Images from the original result were not included. Right Eye Images reviewed. To assess optic nerve function and for use in future follow-up. Reliability: good and adequate. Left Eye Images reviewed. To assess optic nerve function and for use in future follow-up. Reliability: good and adequate. Notes OCT OPTIC NERVE INTERPRETATION Optical Coherence Tomography Interpretation Report Test Details: Measurements: OD ??OS C/D Horizontal 0.18 ??0.00 C/D Vertical 0.14 ??0.00 Disc area 3.40 mm 2 ??4.40 mm 2 RNFL Average 148 microns ??144 microns ?? Test findings: OD: Overestimation of optic nerve size. Thicker than normal RNFL superior, temporal, and inferior quadrants, definite RNFL thinning in nasal quadrant (most likely due to tilted disc). Raised nasal edge secondary to likely PHOM (peripapillary hyper-reflective ovoid mass). OS: Overestimation of optic nerve size. Thicker than normal RNFL in all quadrants. Raised nasal edge secondary to likely PHOM (peripapillary hyper-reflective ovoid mass). 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 There are no associated ONH drusen today. Will have patient return in 4 months for a baseline visual field test to rule out any visual field defect associated with tilted optic nerve appearance. Norma Ledesma OD OPHTH TOMOGRAPHY Final Result * POCT Urine (01/30/2025 5:24 PM EDT) Preg Test, Ur Negative Negative, Indeterminate, None Detected, Invalid, Specimen unsatisfactory for evaluation, Weakly Positive QC Media Lot # [id number] Lot# Expiration Date [id number] Urine 01/30/2025 5:24 PM EDT [facility] POINT OF CARE TEST ENTER/ EDIT ORDERABLES Final Result * Chlamydia/N. Gonorrhoeae RNA, TMA, Urogenitial (09/12/2024 12:18 PM EDT) Pathologist [facility] CT PCR NOT DETECTED Not Detect. [facility] Comment:A not detected test result does not exclude the possibilityof infection because test results can be affected byimproper specimen collection, concurrent antibiotic therapy,or the number of organisms in the specimen which may bebelow the sensitivity of the test. As with many diagnostictests, results from the Xpert CT/NG assay should beinterpreted in conjunction with other laboratory andclinical data available to the clinician.Xpert CT/NG performance has not been evaluated in patientsless than 14 years of age. The assay should not be used forthe evaluationof suspected sexual abuse or for other medico-legalindications. Additional testing is recommended in anycircumstance when false positive or false negative resultscould lead to adverse medical, social or psychologicalconsequences. NG PCR NOT DETECTED Not Detect. [facility] Comment:A not detected test result does not exclude the possibilityof infection because test results can be affected byimproper specimen collection, concurrent antibiotic therapy,or the number of organisms in the specimen which may bebelow the sensitivity of the test. As with many diagnostictests, results from the Xpert CT/NG assay should beinterpreted in conjunction with other laboratory andclinical data available to the clinician.Xpert CT/NG performance has not been evaluated in patientsless than 14 years of age. The assay should not be used forthe evaluationof suspected sexual abuse or for other medico-legalindications. Additional testing is recommended in anycircumstance when false positive or false negative resultscould lead to adverse medical, social or psychologicalconsequences. Swab Vaginal structure / Unknown 09/12/2024 12:18 PM EDT 09/13/2024 2:51 PM EDT Narrative [facility] - 09/13/2024 2:51 PM EDT Vaginal us Lynne Carrington MD LAB MICROBIOLOGY - GENER AL ORDERABLES Final Result [facility] [address] [place] [address] [phone] from Last 3 Months or Most Recently Relevant to Health Maintenance Insurance [place], [place] [employer] * Guarantor: Larissa De La Garza Account Type Relation to Patient Date of Phone Billing Address Personal/Family Self [place], [place] * Guarantor: Larissa De La Garza Account Type Relation to Patient Date of Phone Billing Address Personal/Family Self [place], [place] Care Teams Saturator Tender Relationship Specialty Start Date End Date Edith Steel MD [address] [place] [address] PCP - General Family Medicine 01/28/21
--- OUTSIDE RECORDS SUMMARY | 2025-04-03 12:18 | XMS_ITS | Encounter Summary ---
Author Organization [employer] Address [address] [facility] [address] [place] [address] Care Team Providers Care Extension Service Specialist In Charge Name Role Phone Edith Steel MD Primary Care Provider [phone] Reason for Visit * Reason Onset Date Comments Nurse Triage 09/04/2024 Encounter Details Date Type Department Care Team ([facility] st Contact Info) Description 09/04/2024 Telephone [facility] [address] [place] [address] Edith Steel MD [address] [place] [address] Nurse Triage Social History Tobacco Use Types Packs/Day Years Used Date Smoking Tobacco: Never Passive Smoke Exposure: Never Smokeless Tobacco: Never Alcohol Use Standard Drinks/Week Comments Never 0 (1 standard drink = 0.6 oz pur e alcohol) Housing Stability Answer Date Recorded What is your housing situation today? I have fabi puga 12/27/[address] you li [...] off services in your home? No 12/27/2023 Comments Unknown Sex and Gender Information Value Date Recorded Sex Assigned at Female 09/20/2022 10:18 AM EDT Legal Sex Female 10:18 AM EDT Gender Identity Choose not to disclose 10:18 AM EDT Sexual Orientation Choose not to disclose 2021 10:18 AM EDT documented as of this encounter Miscellaneous Notes * Telephone Encounter - Gabrielle Charles RN - 09/04/2024 1:19 PM EDT Triage call Pt reports lethargy/tiredness for months now. Pt doesn't work and doesn't get any exercise. Pt is advised to take walks during the day for exercise and to increase liquids to 6-8 glasses daily. Pt agrees to try these things. Pt reports abdominal bloating and is constipated at times. Pt is advised to increase fresh fruits/vegetables and more fiber in diet and Pt agrees. Pt is also concerned about low lobido. Pt reports getting injured during intercourse and not enjoying that experience. ASK apt with Dr. Carrington 09/12/24 @ 1100am. Insurance is verified as active prior to booking.Pt agrees with disposition. Protocol Used: Weakness (Generalized) and Fatigue (Adult) Protocol-Based Disposition: See in Office or Video Visit within 2 Weeks Positive Triage Question: * Fatigue is a chronic symptom (recurrent or ongoing AND present > 4 weeks) * All higher-acuity triage questions were negative Care Advice Discussed: * Reassurance and Education - Mild Dehydration * Drink Fluids * Rest * Cool Off * Reasons To Call Back - Still feeling weak after 2 hours of rest and fluids - Passes out (faints) - You become worse * Telephone Encounter - Vaishnavi Heard - 09/04/2024 12:59 PM EDT Symptom: Lethargic (Tired) Outcome: Schedule an appointment to be seen within 3 days Reason: Caller denied all higher acuity questions The caller accepted this outcome. documented in this encounter Plan of Treatment Upcoming Encounters Date Type Department Care Team (Marty aguillon Contact Info) Description 04/19/2025 2:30 PM EDT Office Visit [facility] [address] [place] [address] Edith Steel MD [address] [place] [address] 04/23/2025 9:00 AM EDT Office Visit [facility] [address] [place] [address] Alberta Domingo, LALO [address] [place] [address] 06/17/2025 1:00 PM EDT Office Visit [facility] [address] [place] [address] Norma Ledesma, OD [address] [place] [address] documented as of this encounter Visit Diagnoses Not on filedocumented in this encounter Care Teams Extension Service Specialist In Charge Relationship Specialty Start Date End Date Edith Steel MD [address] [place] [address] PCP - General Family Medicine 01/28/21 documented as of this encounter
--- OUTSIDE RECORDS SUMMARY | 2025-04-03 12:18 | XMS_ITS | Encounter Summary ---
Author Organization [employer] Address [address] [facility] 7t [place] [address] Care Team Providers Care Shower Room Attendant Name Role Phone Edith Steel MD Primary Care Provider [phone] Encounter Details Date Type Department Care Team (Latest Contact Info) Description 04/03/2025 Travel Social History Tobacco Use Types Packs/Day Years [...] Health Questionnaire-2 Score 6 09/12/2024 Comments No Sex and Gender Information Value Date Recorded Sex Assigned at Female 09/20/2022 10:18 AM EDT Legal Sex Female 10:18 AM EDT Gender Identity Choose not to disclose 10:18 AM EDT Sexual Orientation Choose not to disclose 2021 10:18 AM EDT documented as of this encounter Plan of Treatment Upcoming Encounters Date Type Department Care Team (Late st Contact Info) Description 04/19/2025 2:30 PM EDT Office Visit [facility] [address] [place] [address] Edith Steel MD [address] [place] [address] 04/23/2025 9:00 AM EDT Office Visit [facility] [address] [place] [address] Alberta Domingo CNM [address] [place] [address] 06/17/2025 1:00 PM EDT Office Visit [facility] [address] [place] [address] Baltazar, Norma, OD [address] [place] [address] documented as of this encounter Visit Diagnoses Not on filedocumented in this encounter Additional Health Concerns Assessment Noted Time PHQ-9 Depression Total Score: 17 024 11:38 AM EDT documented as of this encounter Care Teams Shower Room Attendant Relationship Specialty Start Date End Date Edith Steel MD [address] [place] [id number] PCP - General Family Medicine 01/28/21 documented as of this encounter
--- OUTSIDE RECORDS SUMMARY | 2025-04-03 12:18 | XMS_ITS | Clinical Summary ---
Author Organization [facility] Address [address] [place] [address] Care Team Providers Care Motion Picture Operator Name Role Phone Unavailable Primary Care Provider Unavailabl e Surgical History Surgery Date Site/Laterality Comments OTHER SURGICAL HISTORY PROCEDURE: DENIES PREVIOUS SURGERY Medical History Medical History Date Comments Patient denies medical problems DX:Patient denies medical problems Family History Medical History Relation Name Comments No Known Problems Father No Known Problems Maternal Grandmother Lymphoma Mother No Known Problems Paternal Grandfather unsure/no conta ct Colon cancer Neg Hx Ovarian cancer Neg Hx Relation Name Status Comments Brother Alive Father Maternal Grandfather Maternal Grandmother Alive Mother Alive Paternal Grandfather unsure/no contact Other Paternal Grandmother Alive Sister Alive Social History Tobacco Use Types Packs/Day Years Used Date Smoking Tobacco: Never Smokeless Tobacco: Never Alcohol Use Standard Drinks/Week Comments No 0 (1 standard drink = 0.6 oz pur e alcohol) Comments Unknown Sex and Gender Information Value Date Recorded Sex Assigned at Not on file Legal Sex Female 2:32 PM EST Gender Identity Not on file Sexual Orientation Not on file Obstetrics History Last Filed Vital Signs Vital Sign Reading Time Taken Comments Blood Pressure 105/74 03/16/2024 3:15 PM EDT Pulse 68 03/16/2024 3:15 PM EDT Temperature - - Respiratory Rate - - Oxygen Saturation - - Inhaled Oxygen Concentration - - Weight 73.9 kg (163 lb) 03/16/2024 3:15 PM EDT Height 152.4 cm (5') 03/16/2024 3:15 PM EDT Body Mass Index 31.83 03/16/2024 3:15 PM EDT Plan of Treatment Health Maintenance Due Date Last Done Comments Gonorrhea/Chlamydia Screening 2001 HPV Vaccines (1 - 3-dose series) 2016 Meningococcal B Vaccine (1 o f 2 - Standard) 2017 Hepatitis B Vaccines (1 of 3 - 19+ 3-dose series) 2020 Cervical Cancer Screening: P ap Smear 2022 Depression Screening 10/20/2022 Hepatitis C Screening 10/20/2022 Social Influencers of Health Screening 10/20/2022 COVID-19 Vaccine (1 - 2023-2 5 season) 2024 Influenza Vaccine (Season Ended) 2025 DTaP,Tdap,and Td Vaccines (3 - Td or Tdap) 12/22/2031 12/22/2021, 07/24/2020 HIV Screening Completed 03/16/2024 HIB Vaccines Aged Out No longer eligi ble based on patient's age to complete this topic Hepatitis A Vaccines Aged Out No long er eligible based on patient's age to complete this topic IPV Vaccines Aged Out No longer eligi ble based on patient's age to complete this topic MMR Vaccines Aged Out No longer eligi ble based on patient's age to complete this topic Meningococcal ACWY Vaccine Aged Out N o longer eligible based on patient's age to complete this topic Pneumococcal Vaccine: Pediatrics (0 to 5 Years) and At-Risk Patients (6 to 64 Years) Aged Out No longer eligible b ased on patient's age to complete this topic RSV Immunization Patients Under 20 months Aged Out No longer eligible b ased on patient's age to complete this topic Varicella Vaccines Aged Out No longer eligible based on patient's age to complete this topic
--- OUTSIDE RECORDS SUMMARY | 2025-04-03 12:18 | XMS_ITS | Encounter Summary ---
Author Organization [employer] Address [address] [place] [address] 7t [place] [address] Care Team Providers Care Head Sulfide Operator Name Role Phone Edith Steel MD Primary Care Provider [phone] Encounter Details Date Type Department Care Team (Latest Contact Info) Description 04/03/2025 10:15 AM EDT Procedure Visit [facility] [address] [place] [address] James Laird CNP [address] [place], [place] [id number] Encounter for Papanicolaou smear for cervical cancer screening (Primary Dx); Encounter for screening examination for sexually transmitted disease; Healthcare maintenance; Dyspareunia in female Social History Tobacco Use Types Packs/Day Years [...] AM EDT documented as of this encounter Last Filed Vital Signs Vital Sign Reading [...] Mass Index 36.72 04/03/2025 10:15 AM EDT documented in this encounter Progress Notes * James Laird CNP - 04/03/2025 10:15 AM EDT Subjective Patient ID: Larissa De La Garza is a 24 y.o. adult who presents for well woman exam including pap. HPI Pt has hx of external hemorrhoids, vaginal dryness, and lack of sexual desire. She says that everytime she has sexual intercourse she tears right around the outside of the opening of her vaginal canal. She reports she has tried lubricants both silicone and water based and they don't last long enough . She reports sufficient foreplay. She does report she is able to reach orgasm but vaginal sensation leading up to that point is decreased. She reports that she has an AMAB monogamous partner x 2years and he is aware of issue. She feels safe in relationship. She does report that she is still experiencing the above sx and they are affecting her relationship. She would like to complete STI testing today, she is also requesting routine bloodwork. She reports hx of recurrent yeast/BV. LMP ended 03/28/25. She reports periods are irregular, she skipped a period in February. She reports some mild sharp pain in her left breast that comes and goes. She denies lumps, bumps, skin changes or nipple discharge. Review of Systems Genitourinary: Positive for dyspareunia, pelvic pain and vaginal pain. Negative for decreased urinevolume, difficulty urinating, dysuria, menstrual problem, urgency, vaginal bleeding and vaginal discharge. Objective Vitals: 04/03/25 1015 BP: 104/66 Pulse: 65 Resp: 18 Temp: 97.7 ??F (36.5 ??C) SpO2: 99% Physical Exam Constitutional: General: Larissa is not in acute distress. Appearance: Normal appearance. Larissa is normal weight. Larissa is not ill- appearing, toxic-appearing or diaphoretic. Genitourinary: Labia: Right: No rash, tenderness, lesion or injury. Left: No rash, tenderness, lesion or injury. Urethra: No prolapse, urethral pain, urethral swelling or urethral lesion. Vagina: Vaginal discharge, erythema and tenderness present. Cervix: Normal. No cervical motion tenderness, discharge, friability, lesion, erythema, cervical bleeding or eversion. Uterus: Normal. Adnexa: Right adnexa normal. Right: No mass, tenderness or fullness. Left: No mass, tenderness or fullness. Neurological: Mental Status: Larissa is alert. Psychiatric: Mood and Affect: Mood normal. Behavior: Behavior normal. Thought Content: Thought content normal. Judgment: Judgment normal. Assessment/Plan Problem List Items Addressed This Visit Dyspareunia in female Education provided by Alberta Domingo CNM regarding pelvic health stretches. We will also rule out infectious cause for pain. Based on results will consider recurrent Vaginitis tx, dilators, or vaginal estrogen therapy. Encounter for Papanicolaou smear for cervical cancer screening - Primary Pap smear performed today, obtained STI add on from pap plus BV panel Also ordered RPR, HIV, Hep C testing Plan to f/u with testing results. If normal, repeat pap in 3 years. Relevant Orders Pap Smear STI testing add on (NG, CT, Trich) Bacterial Vaginosis Panel Encounter for screening examination for sexually transmitted disease Relevant Orders STI testing add on (NG, CT, Trich) Bacterial Vaginosis Panel RPR (Monitor) with Reflex to Titer HIV-1/2 Antigen and Antibodies, Fourth Generation, with Reflexes Hepatitis C Antibody with Reflex to HCV, RNA, Quantitative, Real-Time PCR Healthcare maintenance Plan to obtain routine bloodwork including A1c due to irregular periods and recurrent BV/yeast. Plan to f/u with test results. Relevant Orders TSH W/Reflex to FT4 CBC auto differential Hemoglobin A1c Comprehensive Metabolic Panel Plan to f/u in 2 weeks with Alberta Domingo CNM [facility] ELEMENTARY ART TEACHER Attestation ELEMENTARY ART TEACHER Resident Attestation: Patient was seen and evaluated by James Laird CNP, in collaboration with Alberta Domingo CNM who has reviewed my assessment and plan. I, Alberta Domingo CNM , have reviewed the resident's note and agree with the assessment & plan of care as documented above. Addendum J LALO Domingo: Able to perform diaphragmatic breathing. Trigger point/tenderness midline lower abdomen, bilateral adductors. Vestibule tender from 4 to 7 oclock. Diffuse tenderness of all pelvic floor muscles. Taught diaphragmatic breathing and small ball stretch for abdominals and adductors. Given tennis ball. Do adductor and abdominal stretch 2 minutes daily. Work up to 10 diaphragmatic breaths 3x/day Will reassess in 2 weeks. documented in this encounter Miscellaneous Notes * Assessment & Plan Note - James Laird CNP - 04/03/2025 11:03 AM EDT Associated Problem(s): Healthcare maintenance Plan to obtain routine bloodwork including A1c due to irregular periods and recurrent BV/yeast. Plan to f/u with test results. * Assessment & Plan Note - James Laird CNP - 04/03/2025 11:02 AM EDT Associated Problem(s): Dyspareunia in female Education provided by Alberta Domingo CNM regarding pelvic health stretches. We will also rule out infectious cause for pain. Based on results will consider recurrent Vaginitis tx, dilators, or vaginal estrogen therapy. * Assessment & Plan Note - Jaems Laird CNP - 04/03/2025 11:01 AM EDT Associated Problem(s): Encounter for Papanicolaou smear for cervical cancer screening Pap smear performed today, obtained STI add on from pap plus BV panel Also ordered RPR, HIV, Hep C testing Plan to f/u with testing results. If normal, repeat pap in 3 years. documented in this encounter Plan of Treatment Upcoming Encounters Date Type Department Care Team (Late st Contact Info) Description 04/19/2025 2:30 PM EDT Office Visit [facility] [address] [place] [address] Edith Steel MD [address] [place] [address] 04/23/2025 9:00 AM EDT Office Visit [facility] [address] [place] [address] Alberta Domingo CNM [address] [place] [address] 06/17/2025 1:00 PM EDT Office Visit [facility] [address] [place] [address] Norma Ledesma, OD [address] [place] [address] Scheduled Orders Name Type Priority Associated Diagnoses Orde r Schedule Pap Smear Pathology and Cytology Routine Encounter for Papanicolaou smear for cervical cancer screening Ordered: 04/03/2025 STI testing add on (NG, CT, Trich) Pathology and Cytology Routine Encounter for Papanicolaou smear for cervical cancer screening Encounter for screening examination for sexually transmitted disease Ordered: 04/03/2025 Bacterial Vaginosis Panel Microbiology Routine Encounter for Papanicolaou smear for cervical cancer screening Encounter for screening examination for sexually transmitted disease Ordered: 04/03/2025 RPR (Monitor) with Reflex to??Titer Lab Routine Encounter for screening examination for sexually transmitted disease Expected: 04/03/2025, Expires: 04/03/2026 HIV-1/2 Antigen and Antibodies, Fourth Generation, with Reflexes Lab Routine Encounter for screening examination for sexually transmitted disease Expected: 04/03/2025 (Approximate), Expires: 04/03/2026 Hepatitis C Antibody with Reflex to HCV, RNA, Quantitative, Real-Time PCR Lab Routine Encounter for screening examination for sexually transmitted disease Expected: 04/03/2025, Expires: 04/03/2026 TSH W/Reflex to FT4 Lab Routine Healthcare maintenance Expected: 04/03/2025 (Approximate), Expires: 04/03/2026 CBC auto differential Lab Routine Healthcare maintenance Expected: 04/03/2025 (Approximate), Expires: 04/03/2026 Hemoglobin A1c Lab Routine Healthcare maintenance Expected: 04/03/2025 (Approximate), Expires: 04/03/2026 Comprehensive Metabolic Panel Lab Routine Healthcare maintenance Expected: 04/03/2025 (Approximate), Expires: 04/03/2026 documented as of this encounter Visit Diagnoses Diagnosis Encounter for Papanicolaou smear for cervical cancer screening- Primary Encounter for screening examination for sexually transmitted disease Healthcare maintenance Dyspareunia in female documented in this encounter Additional Health Concerns Assessment Noted Time PHQ-9 Depression Total Score: 17 024 11:38 AM EDT documented as of this encounter Care Teams Head Sulfide Operator Relationship Specialty Start Date End Date Edith Steel MD [address] [place] [address] PCP - General Family Medicine 01/28/21 documented as of this encounter
[2025-04-03 13:34] LABS: MANUAL DIFF FLAG NO
[2025-04-03 13:41] LABS: Red Blood Count 4.65 X10*6/uL (4.20-5.50); White Blood Count 5.4 X10*3/uL (4.8-10.8)
[2025-04-03 13:42] LABS: Basophils Percent Auto 0.6 % (0-2); Eosinophils Absolute Auto 0.1 X10*3/uL (0.0-0.4); Eosinophils Percent Auto 1.5 % (0-4); Hematocrit 39.9 % (37.0-47.0); Hemoglobin 13.1 g/dl (12.0-16.0); Imm Gran Abs Auto 0.01 X10*3/uL (0.00-0.03); Imm Gran Pct Auto 0.2 % (0.0-0.4); Lymphocytes Percent Auto 36.1 % (20-40); Mean Corpuscular HGB Conc 32.8 g/dl (31.0-35.0); Mean Corpuscular Hemoglobin 28.2 pg (27.0-33.0); Mean Corpuscular Volume 85.8 fL (80.0-98.0); Mean Platelet Volume 11.1 fL (9.4-12.3); Monocytes Absolute Auto 0.3 X10*3/uL (0.1-1.2); Monocytes Percent Auto 5.2 % (2-11); Neutrophils Absolute Auto 3.1 x10*3/uL (2.0-8.3); Neutrophils Percent Auto 56.4 % (45-73); Platelet Count 276 X10*3/uL (160-400); Red Cell Distribution Width 13.1 % (11.0-16.0)
[2025-04-03 13:56] LABS: Estimated Average Glucose 97 mg/dL; Hemoglobin A1C 109.7847 umol/L; Total Hemoglobin (HGBA1C) 3507.4709 umol/L
[2025-04-03 13:57] LABS: Alanine Aminotransferase 20 U/L (0-31); Albumin Level 4.3 g/dL (3.5-5.0); Alkaline Phosphatase 81 U/L (39-117); Anion Gap 11 (12-20); Aspartate Amino Transferase 29 U/L (5-31); Bilirubin Total 0.4 mg/dL (0.0-1.0); Blood Urea Nitrogen 11 mg/dL (9-16); Calcium 8.9 mg/dL (8.4-10.2); Carbon Dioxide 28 mmol/L (22-29); Chloride 106 mmol/L (96-108); Estimated Glomerular Filt Rate > 60; Glucose Random 89 mg/dL (60-115); Potassium 4.5 mmol/L (3.3-5.1); Sodium 140 mmol/L (135-145); Total Protein 7.1 g/dL (6.5-8.0)
[2025-04-03 14:15] LABS: TSH reflex Free T4 0.55 uIU/mL (0.32-4.0)
[2025-04-03 17:44] LABS: Bacterial Vaginosis PCR POSITIVE (Negative); Candida Group PCR DETECTED (Not Detect); Candida glab krusei PCR NOT DETECTED (Not Detect); Trichomonas vaginalis PCR NOT DETECTED (Not Detect)
[2025-04-04 08:10] LABS: HIV AB/AG Nonreactive (Nonreactive); HIV Num 1 0.06 S/CO (0.00-0.99); ~HepC Num1 0.07 S/CO (0.00-0.79); ~Hepatitis C Antibody Nonreactive (Nonreactive)
[2025-04-04 11:38] LABS: RPR Rapid Plasma Reagin NON-REACTIVE (NON-REACTIVE)
== END 2025-04-03 11:16 | disposition home or self-care (01) ==
LOC: HO.HHCL 11:15
DX: Z00.00 Encounter for general adult medical examination without abnormal findings (principal); Z12.4 Encounter for screening for malignant neoplasm of cervix; Z11.3 Encounter for screening for infections with a predominantly sexual mode of transmission
CPT/HCPCS: 36415; 80053; 81515; 83036; 84443; 85025; 86592; 86803; 87389

== ENCOUNTER 2025-04-03 12:59 | Outpatient (REF) | payer MEDICAID, SELFPAY ==
--- OUTSIDE RECORDS SUMMARY | 2025-04-04 13:14 | XMS_ITS | Encounter Summary ---
Author Organization [employer] Address [address] [place] [address] [address] [place] [address] Care Team Providers Care Hand Umbrella Tipper Name Role Phone Edith Steel MD Primary Care Provider [phone] Reason for Visit * Reason Onset Date Comments Results 04/04/2025 Encounter Details Date Type Department Care Team ([facility] st Contact Info) Description 04/04/2025 Results Follow-Up [facility] [address] [place] [address] James Laird, LAUNCH LEADER [address] [place] [address] Bacterial Vaginosis Panel, HIV-1/2 Antigen and Antibodies, Fourth Generation, with Reflexes, Hepatitis C Antibody with Reflex to HCV, RNA, Quantitative, Real-Time PCR, Additional followed-up results: 4 Social History Tobacco Use Types Packs/Day Years [...] encounter Miscellaneous Notes * Telephone Encounter - Jojo Hodge RN - 04/04/2025 9:11 AM EDT TC placed to pt per below provider messages. Advised pt of positive yeast and bacterial vaginosis results and that provider sent medications to the pharmacy for treatment. Advised pt provider recommends pt's partner seek treatment as well as it may help with symptoms and recurrence. Pt verbalized understanding and denies questions at this time. ----- Message from James Laird sent at 04/04/2025 8:56 AM EDT ----- Good morning please call patient and let her know that she tested positive for yeast and bacterial vaginosis. I will send oral diflucan and oral metronidazole for treatment today. You can let her know that we are still waiting on the rest of her lab results. Please let me know if there are any questions. Thank you! ----- Message from James Laird sent at 04/04/2025 9:02 AM EDT -----Also, you can recommend topatient that her partner seek treatment as well with a provider. If he is not an established patient, [facility]. Partner treatment may help withsymptoms and recurrence. Thank you! * Result Encounter Note - James Laird CNP - 04/04/2025 9:02 AM EDT Also, you can recommend to patient that her partner seek treatment as well with a provider. If he is not an established patient, places [facility] a good [facility]. Partner treatment may help with symptoms and recurrence. Thank you! * Result Encounter Note - Alberta Domingo CNM - 04/04/2025 9:00 AM EDT Sounds good! If partner is open to treatment for bacterial vaginosis and yeast that might be helpful. Glucose and LFTs are good, HIV neg. Could also consider weekly fluconazole 150mg x 12 weeks for yeast and/or twice weekly MetroGel x 12 weeks for bacterial vaginosis prevention. * Result Encounter Note - James Laird CNP - 04/04/2025 8:58 AM EDT Good morning, Pt tested pos for BV and yeast, I sent treatment for both. I think we can definitely have a conversation with her about recurrent treatment based on rest of pending results. Thank you for all your help! * Result Encounter Note - James Laird CNP - 04/04/2025 8:56 AM EDT Good morning please call patient and let her know that she tested positive for yeast and bacterial vaginosis. I will send oral diflucan and oral metronidazole for treatment today. You can let her know that we are still waiting on the rest of her lab results. Please let me know if there are any questions. Thank you! documented in this encounter Plan of Treatment Upcoming Encounters Date Type Department Care Team (Late st Contact Info) Description 04/19/2025 2:30 PM EDT Office Visit [facility] [address] [place] [address] Edith Steel MD [address] [place] [address] 04/23/2025 9:00 AM EDT Office Visit [facility] [address] [place] [address] Alberta Domingo, LALO [address] [place] [address] 06/17/2025 1:00 PM EDT Office Visit [facility] [address] [place] [address] Baltazar, Norma, OD [address] [place] [address] documented as of this encounter Visit Diagnoses Not on filedocumented in this encounter Additional Health Concerns Assessment Noted Time PHQ-9 Depression Total Score: 17 024 11:38 AM EDT documented as of this encounter Care Teams Hand Umbrella Tipper Relationship Specialty Start Date End Date Edith Steel MD [address] [place] [address] PCP - General Family Medicine 01/28/21 documented as of this encounter
--- OUTSIDE RECORDS SUMMARY | 2025-04-04 13:14 | XMS_ITS | Encounter Summary ---
Author Organization [employer] Address [address] [facility] [address]t [place] [address] Care Team Providers Care Linoleum Printer Name Role Phone Edith Steel MD Primary Care Provider [phone] Encounter Details Date Type Department Care Team [...] Description 04/19/2025 2:30 PM EDT Office Visit [facility] [address] [place] [address] Edith Steel MD [address] [place] [address] 04/23/2025 9:00 AM EDT Office Visit [facility] [address] [place] [address] Alberta Domingo CNM [address] [place] [address] 06/17/2025 1:00 PM EDT Office Visit [facility] [address] [place] [address] Baltazar, Norma, OD [address] [place] [address] documented as of this encounter Visit Diagnoses Not on filedocumented in this encounter Additional Health Concerns Assessment Noted Time PHQ-9 Depression Total Score: 17 024 11:38 AM EDT documented as of this encounter Care Teams Linoleum Printer Relationship Specialty Start Date End Date Edith Steel MD [address] [place] [phone] PCP - General Family Medicine 01/28/21 documented as of this encounter
--- OUTSIDE RECORDS SUMMARY | 2025-04-04 13:14 | XMS_ITS | Encounter Summary ---
Author Organization [employer] Address [address] [place] [address] 7 [place] [address] Care Team Providers Care Bi Manager Name Role Phone Edith Steel MD Primary Care Provider [phone] Encounter Details Date Type Department Care Team (Latest Contact Info) Description 04/03/2025 10:15 AM EDT Procedure Visit [facility] MEDICINE [address] [place] [address] Radha Laird CNP [address] [place], [place] [phone] Encounter for Papanicolaou smear for cervical cancer screening (Primary Dx); Encounter for screening examination for sexually transmitted disease; Healthcare maintenance; Dyspareunia in female; Chronic vaginitis Social History Tobacco Use Types Packs/Day Years [...] documented in this encounter Progress Notes * Radha Laird CNP - 04/03/2025 10:15 AM EDT [...] in 2 weeks with Alberta Domingo CNM [facility] VENEER SORTER Attestation 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 I, Alberta Domingo CNM , have reviewed the resident's note and agree with the assessment & plan of care as documented above. Addendum Connor Domingo CNM: Able to perform diaphragmatic breathing. Trigger point/tenderness [...] Notes * Assessment & Plan Note - Radha Laird CNP - 04/03/2025 11:03 AM EDT Associated Problem(s): Healthcare maintenance Plan to obtain routine bloodwork including A1c due to irregular periods and recurrent BV/yeast. Plan to f/u with test results. * Assessment & Plan Note - Radha Laird CNP - 04/03/2025 11:02 AM EDT Associated Problem(s): Dyspareunia in female Education provided by Alberta Domingo CNM regarding pelvic health stretches. We will also rule out infectious cause for pain. Based on results will consider recurrent Vaginitis tx, dilators, or vaginal estrogen therapy. * Assessment & Plan Note - Radha Laird CNP - 04/03/2025 11:01 AM EDT Associated Problem(s): Encounter for Papanicolaou smear for cervical cancer screening Pap smear performed today, obtained STI add on from pap plus BV panel Also ordered RPR, HIV, Hep C testing Plan to f/u with testing results. If normal, repeat pap in 3 years. * Addendum Note - Radha Laird CNP - 04/03/2025 10:15 AM EDTAddended by: RADHA LAIRD on: 04/04/2025 08:57 AM Modules accepted: Orders documented in this encounter Plan of Treatment Upcoming Encounters Date Type Department Care Team (Late st Contact Info) Description 04/19/2025 2:30 PM EDT Office Visit [facility] MEDICINE [address] [place] [phone] Edith Steel MD [address] [place] [phone] 04/23/2025 9:00 AM EDT Office Visit [facility] MEDICINE [address] [place] [phone] Alberta Domingo CNM [address] [place] [address] 06/17/2025 1:00 PM EDT Office Visit [facility] OPTOMETRY [address] [place] [address] BaltazarNorma dasilva, OD [address] [place] [address] Pending Results Name Type Priority Associated Diagnoses Date /Time RPR (Monitor) with Reflex to??Titer Lab Routine Encounter for screening examination for sexually transmitted disease 04/03/2025 11:18 AM EDT Scheduled Orders Name Type Priority Associated Diagnoses Orde r Schedule Pap Smear Pathology and Cytology Routine Encounter for Papanicolaou smear for cervical cancer screening Ordered: 04/03/2025 STI testing add on (NG, CT, Trich) Pathology and Cytology Routine Encounter for Papanicolaou smear for cervical cancer screening Encounter for screening examination for sexually transmitted disease Ordered: 04/03/2025 documented as of this encounter Procedures Procedure Name Priority Date/Time Associated Diagnosis Comments TSH W/REFLEX TO FT4 Routine 04/03/2025 1 1:18 AM EDT Healthcare maintenance CBC WITH AUTO DIFFERENTIAL Routine 04/03/2025 11:18 AM EDT Healthcare maintenance HEPATITIS C AB W/REFL TO HCV RNA, QN, PCR Routine 04/03/2025 11:18 AM EDT Encounter for screening examination for sexually transmitted disease RPR (MONITOR) W/REFL TITER Routine 04/03/2025 11:18 AM EDT Encounter for screening examination for sexually transmitted disease HIV 1/2 ANTIGEN/ANTIBODY, FOURTH GENERATION W/RFL Routine 04/03/2025 11:18 AM EDT Encounter for screening examination for sexually transmitted disease HEMOGLOBIN A1C Routine 04/03/2025 11:18 AM EDT Healthcare maintenance COMPREHENSIVE METABOLIC PANEL Routine 04/03/2025 11:18 AM EDT Healthcare maintenance BACTERIAL VAGINOSIS PANEL Routine 04/03/2025 10:41 AM EDT Encounter for Papanicolaou smear for cervical cancer screening Encounter for screening examination for sexually transmitted disease documented in this encounter Results * (ABNORMAL) Comprehensive Metabolic Panel (04/03/2025 11:18 AM EDT) Sodium 140 135 - 145 mmol/L [facility] Potassium 4.5 3.3 - 5.1 mmol/L [facility] Chloride 106 96 - 108 mmol/L [facility] Carbon Dioxide 28 22 - 29 mmol/L [facility] Anion Gap 11(L) 12 - 20 [facility] Urea Nitrogen (BUN) 11 9 - 16 mg/dL [facility] Creatinine, Serum 0.69 0.5 - 1.4 mg/dL [facility] Estimated Glomerular Filt Rate >60 [facility] Comment:Chronic Kidney Disea se: Estimated GFR < 60 mL/min/1.34f1Amuslf Kidney Disease: Estimated GFR < 15 mL/min/1.73m2 Glucose 89 60 - 115 mg/dL [facility] Calcium 8.9 8.4 - 10.2 mg/dL [facility] Bilirubin, Total 0.4 0.0 - 1.0 mg/dL [facility] Aspartate Amino Transferase 29 5 - 31 U/L [facility] Alanine Aminotransferase 20 0 - 31 U/L [facility] Total Protein 7.1 6.5 - 8.0 g/dL [facility] Albumin Level 4.3 3.5 - 5.0 g/dL [facility] Alkaline Phosphatase 81 39 - 117 U/L [facility] Blood Venous blood specimen / Unknown 04/03/2025 11:18 AM EDT 04/03/2025 1:26 PM EDT Maxsybil Laird MANAGER OF DIGITAL LAB BLOOD ORDERABLES Nicolasa l Result [facility] [address] [place] [phone] * Hemoglobin A1c (04/03/2025 11:18 AM EDT) Hemoglobin A1c 5.0 <6.0 % [facility] Comment:Hemoglobin A1C Refer ence Range Adults: 4.8 - 6.0 % Non diabetic: < 6.0 % Goal: < 7.0 %Additional Action Suggested: > 8.0 %Note: Hemoglobin A1c results are invalid for patients with abnormal amounts of HbF. Blood transfusions may impact the HbA1c concentration in the patient sample. Estimated Average Glucose 97 mg/dL [facility] Comment:eAG = Estimated ave rage glucose which is %A1C expressed asaverage glucose, using the formula of the S8P-OtuptgwVraenxn Glucose study (ADAG), Diabetes Care, Vol.31,#8,Jun. 2007 Blood Venous blood specimen / Unknown 04/03/2025 11:18 AM EDT 04/03/2025 1:26 PM EDT Maxsybil Laird [facility] LAB BLOOD ORDERABLES Nicolasa l Result [facility] [address] [place] [phone] * CBC auto differential (04/03/2025 11:18 AM EDT) White Blood Count 5.4 4.8 - 10.8 X10*3/uL [facility] Red Blood Count 4.65 4.20 - 5.50 X10*6/uL [facility] Hemoglobin 13.1 12.0 - 16.0 g/dl [facility] Hematocrit 39.9 37.0 - 47.0 % [facility] Mean Corpuscular Volume 85.8 80.0 - 98.0 fL [facility] Mean Corpuscular Hemoglobin 28.2 27.0 - 33.0 pg [facility] Mean Corpuscular HGB Conc 32.8 31.0 - 35.0 g/dl [facility] Red Cell Distribution Width 13.1 11.0 - 16.0 % [facility] Platelet Count 276 160 - 400 X10*3/uL [facility] Mean Platelet Volume 11.1 9.4 - 12.3 fL [facility] Neutrophils Percent Auto 56.4 45 - 73 % [facility] Imm Gran Pct Auto 0.2 0.0 - 0.4 % [facility] Lymphocytes Percent Auto 36.1 20 - 40 % [facility] Monocytes Percent Auto 5.2 2 - 11 % [facility] Eosinophils Percent Auto 1.5 0 - 4 % [facility] Basophils Percent Auto 0.6 0 - 2 % [facility] NRBC Pct Auto 0.0 0.0 - 0.2 /100WBC [facility] Neutrophils Absolute Auto 3.1 2.0 - 8.3 x10*3/uL [facility] Imm Gran Abs Auto 0.01 0.00 - 0.03 X10*3/uL [facility] Lymphocytes Absolute Auto 2.0 1.2 - 4.9 X10*3/uL [facility] Monocytes Absolute Auto 0.3 0.1 - 1.2 X10*3/uL [facility] Eosinophils Absolute Auto 0.1 0.0 - 0.4 X10*3/uL [facility] Basophils Absolute Auto 0.0 0.0 - 0.2 X10*3/uL [facility] NRBC Abs Auto 0.000 0.0 - 0.012 X10*3/uL [facility] Blood Venous blood specimen / Unknown 04/03/2025 11:18 AM EDT 04/03/2025 1:26 PM EDT [facility] LAB BLOOD ORDERABLES Nicolasa l Result [facility] [address] [place] [phone] * TSH W/Reflex to FT4 (04/03/2025 11:18 AM EDT) TSH reflex Free T4 0.55 0.32 - 4.0 uIU/mL [facility] Blood Venous blood specimen / Unknown 04/03/2025 11:18 AM EDT 04/03/2025 1:26 PM EDT [facility] LAB BLOOD ORDERABLES Nicolasa l Result Performing Organization Address [facility]/ZIP Co de Phone Number [facility] [address] [place] [phone] * Hepatitis C Antibody with Reflex to HCV, RNA, Quantitative, Real-Time PCR (04/03/2025 11:18 AM EDT) Hepatitis C Antibody Nonreactive Nonreactive [facility] Comment:Antibodies to HCV no t detected; does not exclude early acuteHCV infection. Blood Venous blood specimen / Unknown 04/03/2025 11:18 AM EDT 04/03/2025 1:26 PM EDT [facility] LAB BLOOD ORDERABLES Nicolasa l Result Performing Organization Address [facility] Co de Phone Number [facility] [address] [place] [phone] * HIV-1/2 Antigen and Antibodies, Fourth Generation, with Reflexes (04/03/2025 11:18 AM EDT) HIV AB/AG Nonreactive Nonreactive [facility] Comment:HIV-1 p24 Ag and/or HIV-1/HIV-2 Ab not detected.A test result that is nonreactive does not exclude thepossibility of exposure to or infection with HIV-1 and/orHIV-2. Nonreactive results in this assay for individualswith prior exposure to HIV-1 and/or HIV-2 may be due toantigen and antibody levels that are below the limit ofdetection of this assay.The [employer] HIV Ag/Ab Combo assay result andsupplemental assay results should be interpreted inconjunction with the patient's clinical presentation,history and other laboratory results. If the results areinconsistent with clinical evidence, additional testing issuggested to confirm the result. Blood Venous blood specimen / Unknown 04/03/2025 11:18 AM EDT 04/03/2025 1:26 PM EDT [facility] MANAGER OF DIGITAL LAB BLOOD ORDERABLES Nicolasa l Result Performing Organization Address [facility] Co de Phone Number [facility] [address] [place] [phone] * (ABNORMAL) Bacterial Vaginosis Panel (04/03/2025 10:41 AM EDT) TRICHOMONAS VAGINALIS DETECTION BY PCR NOT DETECTED Not Detect [facility] BACTERIAL VAGINOSIS DETECTION BY PCR POSITIVE(A) Negative [facility] Comment:The BV organism targ ets of the Xpert Xpress MVP test can becommensal in women; Xpert Xpress MVP positive results forbacterial vaginosis should be considered in conjunction withother clinical and patient information to determine thedisease status. Organisms that are not detected by the XpertXpress MVP test have also been reported to be associatedwith BV and aerobic vaginitis.The Xpert Xpress MVP test performance has not been evaluatedin patients under the age of 14. H[employer] DETECTION BY PCR DETECTED(A) Not Detect [facility] Henrietta glab krusei PCR NOT DETECTED Not Detect [facility] Swab Vaginal structure / Unknown 04/03/2025 10:41 AM EDT 04/03/2025 1:46 PM EDT [facility] LAB MICROBIOLOGY - GENERA L ORDERABLES Final Result Performing Organization Address [facility] Co de Phone Number [facility] [address] [place] [phone] documented in this encounter Visit Diagnoses Diagnosis Encounter for Papanicolaou smear for cervical cancer screening- Primary Encounter for screening examination for sexually transmitted disease Healthcare maintenance Dyspareunia in female Chronic vaginitis Unspecified vaginitis and vulvovaginitis documented in this encounter Additional Health Concerns Assessment Noted Time PHQ-9 Depression Total Score: 17 024 11:38 AM EDT documented as of this encounter Care Teams Bi Manager Relationship Specialty Start Date End Date Edith Steel MD [address] [place] [phone] PCP - General Family Medicine 01/28/21 documented as of this encounter
--- OUTSIDE RECORDS SUMMARY | 2025-04-04 13:14 | XMS_ITS | Encounter Summary ---
Author Organization [employer] Address [address] [facility] [address] [place] [address] Care Team Providers Care Material Damage Adjuster Name Role Phone Edith Steel MD Primary Care Provider Reason for Visit * Reason Onset Date Comments Nurse Triage 09/04/2024 Encounter Details Date Type Department Care Team ([facility] st Contact Info) Description 09/04/2024 Telephone [facility] MEDICINE [address] [place] [address] Edith Steel MD [address] [place] [address] Nurse Triage Social History Tobacco Use Types [...] Description 04/19/2025 2:30 PM EDT Office Visit [facility] MED[facility]INE [address] [place] [address] Edith Steel MD [address] [place] [address] 04/23/2025 9:00 AM EDT Office Visit [facility] MED[facility]INE [address] [place] [address] Alberta Domingo, LALO [address] [place] [address] 06/17/2025 1:00 PM EDT Office Visit [facility] OPTOMETRY [address] [place] [address] Norma Ledesma, OD [address] [place] [address] documented as of this encounter Visit Diagnoses Not on filedocumented in this encounter Care Teams Material Damage Adjuster Relationship Specialty Start Date End Date Edith Steel MD [address] [place] [address] PCP - General Family Medicine 01/28/21 documented as of this encounter
--- OUTSIDE RECORDS SUMMARY | 2025-04-04 13:14 | XMS_ITS | Clinical Summary ---
Author Organization [facility] Address [address] [place] [phone] Care Team Providers Care Administrative Support Associate Name Role Phone Unavailable Primary Care Provider [...]
--- OUTSIDE RECORDS SUMMARY | 2025-04-04 13:14 | XMS_ITS | Clinical Summary ---
Author Organization [employer] Address [address] [facility] [address] [place] [address] Care Team Providers Care Organ Grinder Name Role Phone Edith Steel MD Primary Care Provider [phone] Allergies No known active allergies Medications * This document contains information received from the source organization and may not represent a complete record from that organization. ibuprofen 800 MG tablet TOME RENETTA TABLETA FERNANDO VECES AL D A 02/14/2022 Active hydrocortisone (Anusol-HC) 2.5 % rectal creamIndication s:External hemorrhoid Insert into the rectum 2 times daily. 28 g 1 01/30/2025 Active fluconazole (Diflucan) 150 MG tabletIndicatio ns:Chronic vaginitis Take 1 tablet (150 mg) by mouth 1 (one) time for 1 dose. 1 tablet 04/04/2025 5 Active metroNIDAZOLE (Flagyl) 500 MG tabletIndicatio ns:Chronic vaginitis Take 1 tablet (500 mg) by mouth 2 times daily for 7 days. 14 tablet 04/04/2025 5 Active Active Problems Problem Noted Date Diagnosed [...] Encounters Date Type Department Care Team Description 04/04/2025 Results Follow-Up [facility] [address] [place] [phone] James Laird CNP Bacterial Vaginosis Panel, HIV-1/2 Antigen and Antibodies, Fourth Generation, with Reflexes, Hepatitis C Antibody with Reflex to HCV, RNA, Quantitative, Real-Time PCR, Additional followed-up results: 4 04/03/2025 10:15 AM EDT Procedure Visit [facility] [address] [place] [address] James Laird CNP Encounter for Papanicolaou smear for cervical cancer screening (Primary Dx); Encounter for screening examination for sexually transmitted disease; Healthcare maintenance; Dyspareunia in female; Chronic vaginitis 04/03/2025 Travel 03/07/2025 Telephone [facility] [address] [place] [address] Edith Steel MD Chart Prep 02/14/2025 1:00 PM EDT Office Visit [facility] [address] [place] [address] Norma Ledesma, OD Myopia of both eyes (Primary Dx); 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 Travel 02/01/2025 Population Health Risk Score [facility] ([facility]) [address] [phone] Provider, Population Health Generic 01/30/2025 3:45 PM EDT Office Visit [facility] [address] [place] [address] James Laird CNP Irregular periods (Primary Dx); External hemorrhoid; Vaginal dryness 01/30/2025 Travel 01/29/2025 Telephone [facility] [address] [place], [place] [phone] Edith Steel MD No Show 01/24/2025 Telephone [facility] [address] [place] [address] Edith Steel MD Nurse Triage from Last [...] Description 04/19/2025 2:30 PM EDT Office Visit [facility] [address] [place] [address] Edith Steel MD [address] [place] [address] 04/23/2025 9:00 AM EDT Office Visit [facility] [address] [place] [address] Alberta Domingo CNM [address] [place] [address] 06/17/2025 1:00 PM EDT Office Visit [facility] [address] [place] [address] Norma Ledesma, OD [address] [place] [address] Health Maintenance Due Date Last Done Comments Alcohol/Substance Use Screening 2013 Meningococcal B Vaccine (1 of 2 - Standard) 2017 Pap Smear 2022 COVID-19 Vaccine ( - season) 2024 Influenza Vaccine (#1) 2024 9, 08/10/2017, 10/25/2011 SDOH Screening 02/13/2025 02/14/2024 Chlamydia and Gonorrhea Screening 09/12/2025 09/12/2024, 03/20/2024, 05/06/2023 Depression Screening 09/12/2025 09/12/2024, 09/12/20 24 Family Planning (PISQ) 04/03/2026 04/03/2025 Tobacco Screening [...] 08/10/20 17 Meningococcal Vaccine Completed 12/27/2018, 014 HIV Screening Completed 04/03/2025 Hepatitis C Screening Completed 04/03/2025 RSV under 20 months Aged Out No longe r eligible based on patient's age to complete this topic Rotavirus Vaccines Aged Out No longer eligible based on patient's age to complete this topic Procedures Procedure Name Priority Date/Time Associated Diagnosis Comments COMPREHENSIVE METABOLIC PANEL Routine 04/03/2025 11:18 AM EDT Healthcare maintenance HEMOGLOBIN A1C Routine 04/03/2025 11:18 AM EDT Healthcare maintenance CBC WITH AUTO DIFFERENTIAL Routine 04/03/2025 11:18 AM EDT Healthcare maintenance TSH W/REFLEX TO FT4 Routine 04/03/2025 1 1:18 AM EDT Healthcare maintenance HEPATITIS C AB W/REFL TO HCV RNA, QN, PCR Routine 04/03/2025 11:18 AM EDT Encounter for screening examination for sexually transmitted disease HIV 1/2 ANTIGEN/ANTIBODY, FOURTH GENERATION W/RFL Routine 04/03/2025 11:18 AM EDT Encounter for screening examination for sexually transmitted disease RPR (MONITOR) W/REFL TITER Routine 04/03/2025 11:18 AM EDT Encounter for screening examination for sexually transmitted disease BACTERIAL VAGINOSIS PANEL Routine 04/03/2025 10:41 AM EDT Encounter for Papanicolaou smear for cervical cancer screening Encounter for screening examination for sexually transmitted disease OCT, OPTIC NERVE - OU - BOTH EYES Routine 02/14/2025 1:00 PM EDT Anomalous optic nerve (CMS/HCC) POCT , URINE Routine 01/30/2025 5:24 PM EDT Irregular periods CHLAMYDIA/N. GONORRHOEAE RNA, TMA, UROGENITAL Routine 09/12/2024 12:18 PM EDT Dyspareunia in female from Last 3 Months or Most Recently Relevant to Health Maintenance Results * TSH W/Reflex to FT4 (04/03/2025 11:18 AM EDT) TSH reflex Free T4 0.55 0.32 - 4.0 uIU/mL [facility] Blood Venous blood specimen / Unknown 04/03/2025 11:18 AM EDT 04/03/2025 1:26 PM EDT [facility] LAB BLOOD ORDERABLES Nicolasa l Result [facility] [address] [place] [phone] * CBC auto differential (04/03/2025 11:18 AM EDT) White Blood Count 5.4 4.8 - 10.8 X10*3/uL [facility] Red Blood Count 4.65 4.20 - 5.50 X10*6/uL [facility] Hemoglobin 13.1 12.0 - 16.0 g/dl [facility] Hematocrit 39.9 37.0 - 47.0 % [facility] Mean Corpuscular Volume 85.8 80.0 - 98.0 fL [facility] Mean Corpuscular Hemoglobin 28.2 27.0 - 33.0 pg [facility] Mean Corpuscular HGB Conc 32.8 31.0 - 35.0 g/dl [facility] Red Cell Distribution Width 13.1 11.0 - 16.0 % [facility] Platelet Count 276 160 - 400 X10*3/uL [facility] Mean Platelet Volume 11.1 9.4 - 12.3 fL [facility] Neutrophils Percent Auto 56.4 45 - 73 % [facility] Imm Gran Pct Auto 0.2 0.0 - 0.4 % [facility] Lymphocytes Percent Auto 36.1 20 - 40 % [facility] Monocytes Percent Auto 5.2 2 - 11 % [facility] Eosinophils Percent Auto 1.5 0 - 4 % [facility] Basophils Percent Auto 0.6 0 - 2 % [facility] NRBC Pct Auto 0.0 0.0 - 0.2 /100WBC [facility] Neutrophils Absolute Auto 3.1 2.0 - 8.3 x10*3/uL [facility] Imm Gran Abs Auto 0.01 0.00 - 0.03 X10*3/uL [facility] Lymphocytes Absolute Auto 2.0 1.2 - 4.9 X10*3/uL [facility] Monocytes Absolute Auto 0.3 0.1 - 1.2 X10*3/uL [facility] Eosinophils Absolute Auto 0.1 0.0 - 0.4 X10*3/uL [facility] Basophils Absolute Auto 0.0 0.0 - 0.2 X10*3/uL [facility] NRBC Abs Auto 0.000 0.0 - 0.012 X10*3/uL [facility] Blood Venous blood specimen / Unknown 04/03/2025 11:18 AM EDT 04/03/2025 1:26 PM EDT us James Laird SENIOR ARCHITECT/DESIGN MANAGER LAB BLOOD ORDERABLES Nicolasa l Result [facility] [address] [place] [phone] * Hepatitis C Antibody with Reflex to HCV, RNA, Quantitative, Real-Time PCR (04/03/2025 11:18 AM EDT) Hepatitis C Antibody Nonreactive Nonreactive [facility] Comment:Antibodies to HCV no t detected; does not exclude early acuteHCV infection. Blood Venous blood specimen / Unknown 04/03/2025 11:18 AM EDT 04/03/2025 1:26 PM EDT [facility] LAB BLOOD ORDERABLES Nicolasa l Result Performing Organization Address [facility] de Phone Number [facility] [address] [place] [phone] * HIV-1/2 Antigen and Antibodies, Fourth Generation, with Reflexes (04/03/2025 11:18 AM EDT) Pathologist [facility] HIV AB/AG Nonreactive Nonreactive [facility] Comment:HIV-1 p24 Ag and/or HIV-1/HIV-2 Ab not detected.A test result that is nonreactive does not exclude thepossibility of exposure to or infection with HIV-1 and/orHIV-2. Nonreactive results in this assay for individualswith prior exposure to HIV-1 and/or HIV-2 may be due toantigen and antibody levels that are below the limit ofdetection of this assay.The [employer] HIV Ag/Ab Combo assay result andsupplemental assay results should be interpreted inconjunction with the patient's clinical presentation,history and other laboratory results. If the results areinconsistent with clinical evidence, additional testing issuggested to confirm the result. Blood Venous blood specimen / Unknown 04/03/2025 11:18 AM EDT 04/03/2025 1:26 PM EDT [facility] LAB BLOOD ORDERABLES Nicolasa l Result Performing Organization Address [facility] de Phone Number [facility] [address] [place] [phone] * Hemoglobin A1c (04/03/2025 11:18 AM EDT) Hemoglobin A1c 5.0 <6.0 % [facility] Comment:Hemoglobin A1C Refer ence Range Adults: 4.8 - 6.0 % Non diabetic: < 6.0 % Goal: < 7.0 %Additional Action Suggested: > 8.0 %Note: Hemoglobin A1c results are invalid for patients with abnormal amounts of HbF. Blood transfusions may impact the HbA1c concentration in the patient sample. Estimated Average Glucose 97 mg/dL [facility] Comment:eAG = Estimated ave rage glucose which is %A1C expressed asaverage glucose, using the formula of the F3Y-RsxbvkeSgekkwi Glucose study (ADAG), Diabetes Care, Vol.31,#8,Jun. 2007 Blood Venous blood specimen / Unknown 04/03/2025 11:18 AM EDT 04/03/2025 1:26 PM EDT [facility] LAB BLOOD ORDERABLES Nicolasa l Result Performing Organization Address [facility]/ZIP Co de Phone Number [facility] [address] [place] [phone] * (ABNORMAL) Comprehensive Metabolic Panel (04/03/2025 11:18 AM EDT) Sodium 140 135 - 145 mmol/L [facility] Potassium 4.5 3.3 - 5.1 mmol/L [facility] Chloride 106 96 - 108 mmol/L [facility] Carbon Dioxide 28 22 - 29 mmol/L [facility] Anion Gap 11(L) 12 - 20 [facility] Urea Nitrogen (BUN) 11 9 - 16 mg/dL [facility] Creatinine, Serum 0.69 0.5 - 1.4 mg/dL [facility] Estimated Glomerular Filt Rate >60 [facility] Comment:Chronic Kidney Disea se: Estimated GFR < 60 mL/min/1.83t1Htanen Kidney Disease: Estimated GFR < 15 mL/min/1.73m2 Glucose 89 60 - 115 mg/dL [facility] Calcium 8.9 8.4 - 10.2 mg/dL [facility] Bilirubin, Total 0.4 0.0 - 1.0 mg/dL [facility] Aspartate Amino Transferase 29 5 - 31 U/L [facility] Alanine Aminotransferase 20 0 - 31 U/L [facility] Total Protein 7.1 6.5 - 8.0 g/dL [facility] Albumin Level 4.3 3.5 - 5.0 g/dL [facility] Alkaline Phosphatase 81 39 - 117 U/L [facility] Blood Venous blood specimen / Unknown 04/03/2025 11:18 AM EDT 04/03/2025 1:26 PM EDT James Laird [facility] LAB BLOOD ORDERABLES Nicolasa l Result [facility] [address] [place] [phone] * (ABNORMAL) Bacterial Vaginosis Panel (04/03/2025 10:41 AM EDT) TRICHOMONAS VAGINALIS DETECTION BY PCR NOT DETECTED Not Detect [facility] BACTERIAL VAGINOSIS DETECTION BY PCR POSITIVE(A) Negative [facility] Comment:The BV organism targ ets [...] evaluatedin patients under the age of 14. PREMA GROUP DETECTION BY PCR DETECTED(A) Not Detect [facility] Prema glab krusei PCR NOT DETECTED Not Detect [facility] Swab Vaginal structure / Unknown 04/03/2025 10:41 AM EDT 04/03/2025 1:46 PM EDT James Laird [facility] LAB MICROBIOLOGY - GENERA L ORDERABLES Final Result [facility] [address] [place] [phone] * OCT, Optic Nerve - OU - [...] Media Lot # [id number] Lot# Expiration Date Urine 01/30/2025 5:24 PM EDT [facility] POINT OF CARE TEST ENTER/ EDIT ORDERABLES Final Result * Chlamydia/N. Gonorrhoeae RNA, TMA, Urogenitial (09/12/2024 12:18 PM EDT) CT PCR NOT DETECTED Not Detect. [facility] Comment:A not detected test result [...] psychologicalconsequences. NG PCR NOT DETECTED Not Detect. [facility] Comment:A not detected test result [...] PM EDT 09/13/2024 2:51 PM EDT Narrative [facility] - 09/13/2024 2:51 PM EDT Vaginal us Lynne Carrington MD LAB MICROBIOLOGY - GENER AL ORDERABLES Final Result [facility] [address] [place], [place] [phone] from Last 3 Months or Most Recently Relevant to Health Maintenance Insurance [place], [place] [employer] * Guarantor: Larissa De La Garza Account Type Relation to Patient Date of Phone Billing Address Personal/Family Self [place], [place] * Guarantor: Larissa De La Garza Account Type Relation to Patient Date of Phone Billing Address Personal/Family Self [place], [place] * Guarantor: Larissa De La Garza Account Type Relation to Patient Date of Phone Billing Address Personal/Family Self [place], [place] Care Teams Organ Grinder Relationship Specialty Start Date End Date Edith Steel MD [address] [place] [address] PCP - General Family Medicine 01/28/21
--- OUTSIDE RECORDS SUMMARY | 2025-04-04 13:35 | XMS_ITS | Encounter Summary ---
Author Organization [employer] Address [address] [facility] [address] [place] [address] Care Team Providers Care Media Relations Coordinator Name Role Phone Edith Steel MD Primary Care Provider [phone] Encounter Details Date Type Department Care Team [...] Office Visit [facility] [address] [place] [address] Edith Steel MD [address] [place] [address] 04/23/2025 9:00 AM EDT Office Visit [facility] [address] [place] [address] Alberta Domingo CNM [address] [place] [address] 06/17/2025 1:00 PM EDT Office Visit [facility] [address] [place] [address] Baltazar, Norma, OD [address] [place] [address] documented as of this encounter Visit Diagnoses Not on filedocumented in this encounter Additional Health Concerns Assessment Noted Time PHQ-9 Depression Total Score: 17 024 11:38 AM EDT documented as of this encounter Care Teams Media Relations Coordinator Relationship Specialty Start Date End Date Edith Steel MD [address] [place] [phone] PCP - General Family Medicine 01/28/21 documented as of this encounter
--- OUTSIDE RECORDS SUMMARY | 2025-04-04 13:35 | XMS_ITS | Clinical Summary ---
Author Organization [employer] Address [address] [facility] 7t [place] [address] Care Team Providers Care Hand Brush Filler Name Role Phone Edith Steel MD Primary Care Provider [phone] Allergies No known active allergies Medications * [...] Department Care Team Description 04/04/2025 Results Follow-Up [facility] [address] [place] [phone] James Laird CNP Bacterial Vaginosis Panel, HIV-1/2 Antigen and Antibodies, Fourth Generation, with Reflexes, Hepatitis C Antibody with Reflex to HCV, RNA, Quantitative, Real-Time PCR, Additional followed-up results: 4 04/03/2025 10:15 AM EDT Procedure Visit [facility] [address] [place] [address] James Laird CNP Encounter for Papanicolaou smear for cervical cancer screening (Primary Dx); Encounter for screening examination for sexually transmitted disease; Healthcare maintenance; Dyspareunia in female; Chronic vaginitis 04/03/2025 Travel 03/07/2025 Telephone [facility] [address] [place] [address] Edith Steel MD Chart Prep 02/14/2025 1:00 PM EDT Office Visit [facility] OPT[facility] [address] [place] [address] Norma Ledesma, OD Myopia of both eyes (Primary Dx); 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 Travel 02/01/2025 Population Health Risk Score [facility] (C3) [address] [address] Provider, Population Health Generic 01/30/2025 3:45 PM EDT Office Visit [facility] [address] [place] [address] James Laird CNP Irregular periods (Primary Dx); External hemorrhoid; Vaginal dryness 01/30/2025 Travel 01/29/2025 Telephone [facility] [address] [place], [place] [phone] Edith Steel MD No Show 01/24/2025 Telephone [facility] [address] [place] [address] Edith Steel MD Nurse Triage from Last [...] Office Visit [facility] [address] [place] [address] Edith Steel MD [address] [place] [address] 04/23/2025 9:00 AM EDT Office Visit [facility] [address] [place] [address] Alberta Domingo CNM [address] [place] [address] 06/17/2025 1:00 PM EDT Office Visit [facility] OPT[facility]ET[facility] [address] [place] [address] Norma Ledesma, OD [address] [place] [address] Health Maintenance Due Date Last Done Comments [...] Free T4 0.55 0.32 - 4.0 uIU/mL [facility] Blood Venous blood specimen / Unknown 04/03/2025 11:18 AM EDT 04/03/2025 1:26 PM EDT [facility] LAB BLOOD ORDERABLES Nicolasa l Result [facility] [address] [place] [phone] * CBC auto differential (04/03/2025 11:18 AM EDT) White Blood Count 5.4 4.8 - 10.8 X10*3/uL [facility] Red Blood Count 4.65 4.20 - 5.50 X10*6/uL [facility] Hemoglobin 13.1 12.0 - 16.0 g/dl [facility] Hematocrit 39.9 37.0 - 47.0 % [facility] Mean Corpuscular Volume 85.8 80.0 - 98.0 fL [facility] Mean Corpuscular Hemoglobin 28.2 27.0 - 33.0 pg [facility] Mean Corpuscular HGB Conc 32.8 31.0 - 35.0 g/dl [facility] Red Cell Distribution Width 13.1 11.0 - 16.0 % [facility] Platelet Count 276 160 - 400 X10*3/uL [facility] Mean Platelet Volume 11.1 9.4 - 12.3 fL [facility] Neutrophils Percent Auto 56.4 45 - 73 % [facility] Imm Gran Pct Auto 0.2 0.0 - 0.4 % [facility] Lymphocytes Percent Auto 36.1 20 - 40 % [facility] Monocytes Percent Auto 5.2 2 - 11 % [facility] Eosinophils Percent Auto 1.5 0 - 4 % [facility] Basophils Percent Auto 0.6 0 - 2 % [facility] NRBC Pct Auto 0.0 0.0 - 0.2 /100WBC [facility] Neutrophils Absolute Auto 3.1 2.0 - 8.3 x10*3/uL [facility] Imm Gran Abs Auto 0.01 0.00 - 0.03 X10*3/uL [facility] Lymphocytes Absolute Auto 2.0 1.2 - 4.9 X10*3/uL [facility] Monocytes Absolute Auto 0.3 0.1 - 1.2 X10*3/uL [facility] Eosinophils Absolute Auto 0.1 0.0 - 0.4 X10*3/uL [facility] Basophils Absolute Auto 0.0 0.0 - 0.2 X10*3/uL [facility] NRBC Abs Auto 0.000 0.0 - 0.012 X10*3/uL [facility] Blood Venous blood specimen / Unknown 04/03/2025 11:18 AM EDT 04/03/2025 1:26 PM EDT us James aLird [employer]IE[employer] LAB BLOOD ORDERABLES Nicolasa l Result [facility] [address] [place] [phone] * Hepatitis C Antibody with Reflex to HCV, RNA, Quantitative, Real-Time PCR (04/03/2025 11:18 AM EDT) Hepatitis C Antibody Nonreactive Nonreactive [facility] Comment:Antibodies to HCV no t detected; does not exclude early acuteHCV infection. Blood Venous blood specimen / Unknown 04/03/2025 11:18 AM EDT 04/03/2025 1:26 PM EDT [facility] LAB BLOOD ORDERABLES Nicolasa l Result Performing Organization Address [facility] de Phone Number [facility] [address] [place] [phone] * HIV-1/2 Antigen and Antibodies, Fourth Generation, with Reflexes (04/03/2025 11:18 AM EDT) Pathologist [facility] HIV AB/AG Nonreactive Nonreactive [facility] Comment:HIV-1 p24 Ag and/or HIV-1/HIV-2 Ab not detected.A test result that is nonreactive does not exclude thepossibility of exposure to or infection with HIV-1 and/orHIV-2. Nonreactive results in this assay for individualswith prior exposure to HIV-1 and/or HIV-2 may be due toantigen and antibody levels that are below the limit ofdetection of this assay.The [employer] HIV Ag/Ab Combo assay result andsupplemental assay results should be interpreted inconjunction with the patient's clinical presentation,history and other laboratory results. If the results areinconsistent with clinical evidence, additional testing issuggested to confirm the result. Blood Venous blood specimen / Unknown 04/03/2025 11:18 AM EDT 04/03/2025 1:26 PM EDT [facility] LAB BLOOD ORDERABLES Nicolasa l Result Performing Organization Address [facility] de Phone Number [facility] [address] [place] [address] [phone] * Hemoglobin A1c (04/03/2025 11:18 AM EDT) Hemoglobin A1c 5.0 <6.0 % [facility] Comment:Hemoglobin A1C Refer ence Range Adults: 4.8 - 6.0 % Non diabetic: < 6.0 % Goal: < 7.0 %Additional Action Suggested: > 8.0 %Note: Hemoglobin A1c results are invalid for patients with abnormal amounts of HbF. Blood transfusions may impact the HbA1c concentration in the patient sample. Estimated Average Glucose 97 mg/dL [facility] Comment:eAG = Estimated ave rage glucose which is %A1C expressed asaverage glucose, using the formula of the X5R-UcqrumiLjnidfq Glucose study (ADAG), Diabetes Care, Vol.31,#8,Jun. 2007 Blood Venous blood specimen / Unknown 04/03/2025 11:18 AM EDT 04/03/2025 1:26 PM EDT [facility] LAB BLOOD ORDERABLES Nicolasa l Result Performing Organization Address [facility]/ZIP Co de Phone Number [facility] [address] [place] [phone] * (ABNORMAL) Comprehensive Metabolic Panel (04/03/2025 11:18 AM EDT) Sodium 140 135 - 145 mmol/L [facility] Potassium 4.5 3.3 - 5.1 mmol/L [facility] Chloride 106 96 - 108 mmol/L [facility] Carbon Dioxide 28 22 - 29 mmol/L [facility] Anion Gap 11(L) 12 - 20 [facility] Urea Nitrogen (BUN) 11 9 - 16 mg/dL [facility] Creatinine, Serum 0.69 0.5 - 1.4 mg/dL [facility] Estimated Glomerular Filt Rate >60 [facility] Comment:Chronic Kidney Disea se: Estimated GFR < 60 mL/min/[id number] Kidney Disease: Estimated GFR < 15 mL/min/1.73m2 Glucose 89 60 - 115 mg/dL [facility] Calcium 8.9 8.4 - 10.2 mg/dL [facility] Bilirubin, Total 0.4 0.0 - 1.0 mg/dL [facility] Aspartate Amino Transferase 29 5 - 31 U/L [facility] Alanine Aminotransferase 20 0 - 31 U/L [facility] Total Protein 7.1 6.5 - 8.0 g/dL [facility] Albumin Level 4.3 3.5 - 5.0 g/dL [facility] Alkaline Phosphatase 81 39 - 117 U/L [facility] Blood Venous blood specimen / Unknown 04/03/2025 11:18 AM EDT 04/03/2025 1:26 PM EDT James Laird [facility] LAB BLOOD ORDERABLES Nicolasa l Result [facility] [address] [place] [phone] * (ABNORMAL) Bacterial Vaginosis Panel (04/03/2025 10:41 AM EDT) TRICHOMONAS VAGINALIS DETECTION BY PCR NOT DETECTED Not Detect [facility] BACTERIAL VAGINOSIS DETECTION BY PCR POSITIVE(A) Negative [facility] Comment:The BV organism targ ets [...] GROUP DETECTION BY PCR DETECTED(A) Not Detect [facility] Prema glab krusei PCR NOT DETECTED Not Detect [facility] Swab Vaginal structure / Unknown 04/03/2025 10:41 AM EDT 04/03/2025 1:46 PM EDT James Laird [facility] LAB MICROBIOLOGY - GENERA L ORDERABLES Final Result [facility] [address] [place] [phone] * OCT, Optic Nerve - OU [...] Expiration Date Urine 01/30/2025 5:24 PM EDT [facility] POINT OF CARE TEST ENTER/ EDIT ORDERABLES Final Result * Chlamydia/N. Gonorrhoeae RNA, TMA, Urogenitial (09/12/2024 12:18 PM EDT) CT PCR NOT DETECTED Not Detect. [facility] Comment:A not detected test result [...] psychologicalconsequences. NG PCR NOT DETECTED Not Detect. [facility] Comment:A not detected test result [...] PM EDT 09/13/2024 2:51 PM EDT Narrative [facility] - 09/13/2024 2:51 PM EDT Vaginal us Lynne Carrington MD LAB MICROBIOLOGY - GENER AL ORDERABLES Final Result [facility] [address] [place], [place] [phone] from Last 3 Months or Most Recently Relevant to Health Maintenance Insurance [place], [place] [employer] C[employer] * Guarantor: Larissa De La Garza Account Type Relation to Patient Date of Phone Billing Address Personal/Family Self [place], [place] * Guarantor: Larissa De La Garza Account Type Relation to Patient Date of Phone Billing Address Personal/Family Self [place], [place] * Guarantor: Larissa De La Garza Account Type Relation to Patient Date of Phone Billing Address Personal/Family Self [place], [place] Care Teams Hand Brush Filler Relationship Specialty Start Date End Date Edith Steel MD [address] [place] [address] PCP - General Family Medicine 01/28/21
--- OUTSIDE RECORDS SUMMARY | 2025-04-04 13:35 | XMS_ITS | Encounter Summary ---
Author Organization [employer] Address [address] [place] [address] 7 [place] [address] Care Team Providers Care Dirt Supervisor Name Role Phone Edith Steel MD Primary Care Provider [phone] Reason for Visit * Reason Onset Date Comments Results 04/04/2025 Encounter Details Date Type Department Care Team ([facility] st Contact Info) Description 04/04/2025 Results Follow-Up [facility] [address] [place] [address] James Laird, REGISTERED ROUTE ASSOCIATE [address] [place] [address] Bacterial Vaginosis Panel, HIV-1/2 Antigen and Antibodies, [...] Description 04/19/2025 2:30 PM EDT Office Visit [facility] [address] [place] [address] Edith Steel MD [address] [place] [address] 04/23/2025 9:00 AM EDT Office Visit [facility] [address] [place] [address] Alberta Domingo, LALO [address] [place] [address] 06/17/2025 1:00 PM EDT Office Visit [facility] OPTOMETRY [address] [place] [address] Baltazar, Norma, OD [address] [place] [address] documented as of this encounter Visit Diagnoses Not on filedocumented in this encounter Additional Health Concerns Assessment Noted Time PHQ-9 Depression Total Score: 17 024 11:38 AM EDT documented as of this encounter Care Teams Dirt Supervisor Relationship Specialty Start Date End Date Edith Steel MD [address] [place] [phone] PCP - General Family Medicine 01/28/21 documented as of this encounter
--- OUTSIDE RECORDS SUMMARY | 2025-04-04 13:35 | XMS_ITS | Clinical Summary ---
Author Organization [facility] Address [address] [place] [address] Care Team Providers Care Pmo Project Manager Name Role Phone Unavailable Primary Care Provider [...]
--- OUTSIDE RECORDS SUMMARY | 2025-04-04 13:35 | XMS_ITS | Encounter Summary ---
Author Organization [email or web address] Address [address] [facility] 7t [place] [address] Care Team Providers Care Broke Man Name Role Phone Edith Steel MD Primary Care Provider [phone] Reason for Visit * Reason Onset Date Comments Nurse Triage 09/04/2024 Encounter Details Date Type Department Care Team ([facility] st Contact Info) Description 09/04/2024 Telephone [facility] [address] [place] [address] Edith Steel MD [address] [place] [address] Nurse Triage Social History Tobacco Use Types [...] 2:30 PM EDT Office Visit [facility] [address] [place] [address] Edith Steel MD [address] [place] [address] 04/23/2025 9:00 AM EDT Office Visit [facility] [address] [place] [address] Ablerta Domingo, LALO [address] [place] [address] 06/17/2025 1:00 PM EDT Office Visit [facility] [address] [place] [address] Norma Ledesma, OD [address] [place] [address] documented as of this encounter Visit Diagnoses Not on filedocumented in this encounter Care Teams Broke Man Relationship Specialty Start Date End Date Edith Steel MD [address] [place] [address] PCP - General Family Medicine 01/28/21 documented as of this encounter
--- OUTSIDE RECORDS SUMMARY | 2025-04-04 13:35 | XMS_ITS | Encounter Summary ---
Author Organization [employer] Address [address] [place] [address] 7 [place] [address] Care Team Providers Care Offshore Wind Operations Manager Name Role Phone Edith Steel MD Primary Care Provider [phone] Encounter Details Date Type Department Care Team (Latest Contact Info) Description 04/03/2025 10:15 AM EDT Procedure Visit [facility] [address] [place] [address] Radha Laird CNP [address] [place], [place] [phone] Encounter for Papanicolaou smear for cervical cancer [...] in 2 weeks with Alberta Domingo CNM [facility] ACCOUNT ADJUSTER Attestation ACCOUNT ADJUSTER Resident Attestation: Patient was seen and evaluated [...] Description 04/19/2025 2:30 PM EDT Office Visit [facility] [address] [place] [phone] Edith Steel MD [address] [place] [phone] 04/23/2025 9:00 AM EDT Office Visit [facility] [address] [place] [address] Alberta Domingo CNM [address] [place] [address] 06/17/2025 1:00 PM EDT Office Visit [facility] OPTOMETRY [address] [place] [address] BaltazarNorma dasilva, OD [address] [place] [address] Pending Results Name Type Priority Associated Diagnoses [...] EDT) Sodium 140 135 - 145 mmol/L [facility] Potassium 4.5 3.3 - 5.1 mmol/L [facility] Chloride 106 96 - 108 mmol/L [facility] Carbon Dioxide 28 22 - 29 mmol/L [facility] Anion Gap 11(L) 12 - 20 [facility] Urea Nitrogen (BUN) 11 9 - 16 mg/dL [facility] Creatinine, Serum 0.69 0.5 - 1.4 mg/dL [facility] Estimated Glomerular Filt Rate >60 [facility] Comment:Chronic Kidney Disea se: Estimated GFR < 60 mL/min/[id number] Kidney Disease: Estimated GFR < 15 mL/min/1.73m2 Glucose 89 60 - 115 mg/dL [facility] Calcium 8.9 8.4 - 10.2 mg/dL [facility] Bilirubin, Total 0.4 0.0 - 1.0 mg/dL [facility] Aspartate Amino Transferase 29 5 - 31 U/L [facility] Alanine Aminotransferase 20 0 - 31 U/L [facility] Total Protein 7.1 6.5 - 8.0 g/dL [facility] Albumin Level 4.3 3.5 - 5.0 g/dL [facility] Alkaline Phosphatase 81 39 - 117 U/L [facility] Blood Venous blood specimen / Unknown 04/03/2025 11:18 AM EDT 04/03/2025 1:26 PM EDT Maxsybil Laird LETTUCE TRIMMER LAB BLOOD ORDERABLES Nicolasa l Result [facility] [address] [place] [phone] * Hemoglobin A1c (04/03/2025 11:18 AM EDT) Hemoglobin A1c 5.0 <6.0 % [facility] Comment:Hemoglobin A1C Refer ence Range Adults: 4.8 - 6.0 % Non diabetic: < 6.0 % Goal: < 7.0 %Additional Action Suggested: > 8.0 %Note: Hemoglobin A1c results are invalid for patients with abnormal amounts of HbF. Blood transfusions may impact the HbA1c concentration in the patient sample. Estimated Average Glucose 97 mg/dL [facility] Comment:eAG = Estimated ave rage glucose which is %A1C expressed asaverage glucose, using the formula of the P5R-ScommwqGcduatf Glucose study (ADAG), Diabetes Care, Vol.31,#8,Jun. 2007 Blood Venous blood specimen / Unknown 04/03/2025 11:18 AM EDT 04/03/2025 1:26 PM EDT Maxsybil Laird [facility] LAB BLOOD ORDERABLES Nicolasa l Result [facility] [address] [place] [phone] * CBC auto differential (04/03/2025 11:18 AM EDT) White Blood Count 5.4 4.8 - 10.8 X10*3/uL [facility] Red Blood Count 4.65 4.20 - 5.50 X10*6/uL [facility] Hemoglobin 13.1 12.0 - 16.0 g/dl [facility] Hematocrit 39.9 37.0 - 47.0 % [facility] Mean Corpuscular Volume 85.8 80.0 - 98.0 fL [facility] Mean Corpuscular Hemoglobin 28.2 27.0 - 33.0 pg [facility] Mean Corpuscular HGB Conc 32.8 31.0 - 35.0 g/dl [facility] Red Cell Distribution Width 13.1 11.0 - 16.0 % [facility] Platelet Count 276 160 - 400 X10*3/uL [facility] Mean Platelet Volume 11.1 9.4 - 12.3 fL [facility] Neutrophils Percent Auto 56.4 45 - 73 % [facility] Imm Gran Pct Auto 0.2 0.0 - 0.4 % [facility] Lymphocytes Percent Auto 36.1 20 - 40 % [facility] Monocytes Percent Auto 5.2 2 - 11 % [facility] Eosinophils Percent Auto 1.5 0 - 4 % [facility] Basophils Percent Auto 0.6 0 - 2 % [facility] NRBC Pct Auto 0.0 0.0 - 0.2 /100WBC [facility] Neutrophils Absolute Auto 3.1 2.0 - 8.3 x10*3/uL [facility] Imm Gran Abs Auto 0.01 0.00 - 0.03 X10*3/uL [facility] Lymphocytes Absolute Auto 2.0 1.2 - 4.9 X10*3/uL [facility] Monocytes Absolute Auto 0.3 0.1 - 1.2 X10*3/uL [facility] Eosinophils Absolute Auto 0.1 0.0 - 0.4 X10*3/uL [facility] Basophils Absolute Auto 0.0 0.0 - 0.2 X10*3/uL [facility] NRBC Abs Auto 0.000 0.0 - 0.012 X10*3/uL [facility] Blood Venous blood specimen / Unknown 04/03/2025 11:18 AM EDT 04/03/2025 1:26 PM EDT [facility] LAB BLOOD ORDERABLES Nicolasa l Result [facility] [address] [place] [phone] * TSH W/Reflex to FT4 (04/03/2025 11:18 AM EDT) TSH reflex Free T4 0.55 0.32 - 4.0 uIU/mL [facility] Blood Venous blood specimen / Unknown 04/03/2025 11:18 AM EDT 04/03/2025 1:26 PM EDT [facility] LAB BLOOD ORDERABLES Nicolasa l Result Performing Organization Address [facility]/ZIP Co de Phone Number [facility] [address] [place] [phone] * Hepatitis C Antibody with Reflex to HCV, RNA, Quantitative, Real-Time PCR (04/03/2025 11:18 AM EDT) Hepatitis C Antibody Nonreactive Nonreactive [facility] Comment:Antibodies to HCV no t detected; does not exclude early acuteHCV infection. Blood Venous blood specimen / Unknown 04/03/2025 11:18 AM EDT 04/03/2025 1:26 PM EDT [facility] LAB BLOOD ORDERABLES Nicolasa l Result Performing Organization Address [facility] Co de Phone Number [facility] [address] [place] [phone] * HIV-1/2 Antigen and Antibodies, Fourth Generation, with Reflexes (04/03/2025 11:18 AM EDT) HIV AB/AG Nonreactive Nonreactive [facility] Comment:HIV-1 p24 Ag and/or HIV-1/HIV-2 Ab not detected.A test result that is nonreactive does not exclude thepossibility of exposure to or infection with HIV-1 and/orHIV-2. Nonreactive results in this assay for individualswith prior exposure to HIV-1 and/or HIV-2 may be due toantigen and antibody levels that are below the limit ofdetection of this assay.The [employer] HIV Ag/Ab Combo assay result andsupplemental assay results should be interpreted inconjunction with the patient's clinical presentation,history and other laboratory results. If the results areinconsistent with clinical evidence, additional testing issuggested to confirm the result. Blood Venous blood specimen / Unknown 04/03/2025 11:18 AM EDT 04/03/2025 1:26 PM EDT [facility] LETTUCE TRIMMER LAB BLOOD ORDERABLES Nicolasa l Result Performing Organization Address [facility] Co de Phone Number [facility] [address] [place] [phone] * (ABNORMAL) Bacterial Vaginosis Panel (04/03/2025 10:41 AM EDT) TRICHOMONAS VAGINALIS DETECTION BY PCR NOT DETECTED Not Detect [facility] BACTERIAL VAGINOSIS DETECTION BY PCR POSITIVE(A) Negative [facility] Comment:The BV organism targ ets of [...] GROUP DETECTION BY PCR DETECTED(A) Not Detect [facility] Henrietta glab krusei PCR NOT DETECTED Not Detect [facility] Swab Vaginal structure / Unknown 04/03/2025 10:41 AM EDT 04/03/2025 1:46 PM EDT [facility] LAB MICROBIOLOGY - GENERA L ORDERABLES Final Result Performing Organization Address [facility] Co de Phone Number [facility] [address] [place] [phone] documented in this encounter Visit Diagnoses Diagnosis Encounter for Papanicolaou smear for cervical cancer screening- Primary Encounter for screening examination for sexually transmitted disease Healthcare 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
[2025-04-06 15:48] LABS: C. trachomatis RNA TMA NOT DETECTED (NOT DETECTED); N. gonorrhoeae RNA TMA NOT DETECTED (NOT DETECTED); Trichomonas (NAAT) NOT DETECTED (NOT DETECTED)
== END 2025-04-03 13:00 | disposition home or self-care (01) ==
LOC: HO.HHCLNP 12:59
DX: Z00.00 Encounter for general adult medical examination without abnormal findings (principal)
CPT/HCPCS: 87491; 87591; 87661; 88175

== ENCOUNTER 2025-05-27 | Outpatient (REF) | payer MEDICAID, SELFPAY ==
--- OUTSIDE RECORDS SUMMARY | 2025-05-28 13:12 | XMS_ITS | Clinical Summary ---
Author Organization [email or web address] Address [address] [facility] [address] [place] [address] Care Team Providers Care Casting Supervisor Name Role Phone Edith Steel MD Primary Care Provider [phone] Allergies No known active allergies Medications * This document contains information received from the source organization and may not represent a complete record from that organization. ibuprofen 800 MG tablet TOME ERNETTA TABLETA FERNANDO VECES AL D A 02/14/2022 Active hydrocortisone (Anusol-HC) 2.5 % rectal creamIndication s:External hemorrhoid Insert into the rectum 2 times daily. 28 g 1 01/30/2025 Active fluconazole (Diflucan) 150 MG tablet TOME RENETTA TABLETA POR V A ORAL ONE TIME FOR 1 DOSE 04/04/2025 Active nitrofurantoin, macrocrystal-mo nohydrate, (Macrobid) 100 MG capsuleIndicati ons:Acute cystitis without hematuria Take 1 capsule (100 mg) by mouth 2 times daily for 7 days. 14 capsule 05/27/2025 Active Active Problems Problem Noted Date Diagnosed [...] Encounters Date Type Department Care Team Description 05/27/2025 1:00 PM EDT Office Visit [facility] [address] [place] [address] Starr Doe NP Acute cystitis without hematuria (Primary Dx); UTI symptoms 05/27/2025 Travel 04/23/2025 Telephone [facility] [address] [place] [phone] Alberta Domingo CNM 04/22/2025 Telephone [facility] [address] [place] [address] Edith Steel MD Chart Prep 04/16/2025 1:00 PM EDT Office Visit [facility] [address] [place], [place] [phone] Baltazar, Norma, OD Myopia of both eyes (Primary Dx) 04/16/2025 Travel 04/08/2025 Patient Outreach [facility] [address] [place] [address] Edith Steel MD Pre-visit Planning (SDOH screening negative and tobacco screening negative) 04/04/2025 Results Follow-Up [facility] [address] [place] [phone] James Laird CNP Bacterial Vaginosis Panel, HIV-1/2 Antigen and Antibodies, Fourth Generation, with Reflexes, Hepatitis C Antibody with Reflex to HCV, RNA, Quantitative, Real-Time PCR, Additional followed-up results: 7 04/03/2025 10:15 AM EDT Procedure Visit [facility] [address] [place] [phone] James Laird CNP Encounter for Papanicolaou smear for cervical cancer screening (Primary Dx); Encounter for screening examination for sexually transmitted disease; Healthcare maintenance; Dyspareunia in female; Chronic vaginitis 04/03/2025 Travel 03/07/2025 Telephone [facility] [address] [place] [phone] Edith Steel MD Chart Prep from Last 3 Months Immunizations Immunization Administration [...] housing situation today? I have fabi puga 04/08/[address] you li ve. Do you have problems with any of the following? None of the above 04/08/2025 Food Insecurity Answer Date Recorded Within the past 12 months, y ou worried that your food would run out before you got money to buy more: Never True 04/08/2025 Within the past 12 months,th e food you bought just didn't last and you didn't have enough money to get more: Never True Transportation Answer Date Recorded In the past 12 months, has l ack of transportation kept you from medical appts, meetings, work or from getting things needed for daily living? No 04/08/2025 Utilities Answer Date Recorded In the past 12 months, has t he electric, gas, oil or water company threatened to shut off services in your home? No 04/08/2025 Depression Answer Date Recorded Patient Health Questionnaire-2 Score 6 09/12/2024 Internet Access Answer Date Recorded Internet Access Q1 Yes 04/08/2025 Internet Access Q2 Not on file 04/08/2025 Comments No Intention Date Recorded Ambivalent about becoming (find ing) 04/03/2025 Sex and Gender Information Value Date Recorded Sex Assigned at Female 09/20/2022 10:18 AM EDT Legal Sex Female 10:18 AM EDT Gender Identity Choose not to disclose 10:18 AM EDT Sexual Orientation Choose not to disclose 2021 10:18 AM EDT Last Filed Vital Signs Vital Sign Reading Time Taken Comments Blood Pressure 113/68 05/27/2025 1:12 PM EDT Pulse 68 05/27/2025 1:12 PM EDT Temperature 36.7 C (98.1 F) 05/27/2025 1:12 PM EDT Respiratory Rate 16 05/27/2025 1:12 PM EDT Oxygen Saturation 98% 05/27/2025 1:12 PM EDT Inhaled Oxygen Concentration - - Weight 83.9 kg (185 lb) 05/27/2025 1:12 PM EDT Height 152.4 cm (5') 04/03/2025 10:15 AM EDT Body Mass Index 36.13 04/03/2025 10:15 AM EDT Plan of Treatment Upcoming Encounters Date Type Department Care Team (Late st Contact Info) Description 06/17/2025 1:00 PM EDT Office Visit [facility] [address] [place] [address] BaltazarNorma, OD [address] [place] [address] Health Maintenance Due Date Last Done Comments Disability Screening 2001 Alcohol/Substance Use Screening 2013 Meningococcal B Vaccine (1 of 2 - Standard) 2017 COVID-19 Vaccine ( season) 2024 Depression Monitoring 03/13/2025 09/12/2024, 024 Influenza Vaccine (#1) 2025 9, 08/10/2017, 10/25/2011 Chlamydia and Gonorrhea Screening 04/03/2026 04/03/2025, 09/12/2024, 03/20/2024, Additional history exists Family Planning (PISQ) 04/03/2026 04/03/2025 SDOH Screening 04/08/2026 04/08/2025 Tobacco Screening 05/27/2026 05/27/2025 Pap Smear 04/03/2028 04/03/2025 DTaP/Tdap/Td Vaccines (8 - Td or Tdap) 12/22/2031 12/22/2021, 07/24/2020, 01/21/2014, Additional history exists Zoster Vaccines (1 of 2) 2051 RSV Patients and Patients Aged 60 years or older (1 - 1-dose 75+ series) 2076 HIB Vaccines Completed 04/13/2005, 12/29/2004 Pneumococcal Vaccine: Pediatrics (0 to 5 Years) and At-Risk Patients (6 to 49) Years Aged Out 04/13/2005, 12/29/2004 No longer eligibl [...] Procedure Name Priority Date/Time Associated Diagnosis Comments POCT URINALYSIS DIPSTICK Routine 05/27/2025 1:20 PM EDT UTI symptoms COMPREHENSIVE METABOLIC PANEL Routine 04/03/2025 11:18 AM [...] for screening examination for sexually transmitted disease CHLAMYDIA/N. GONORRHOEAE AND T. VAGINALIS RNA, QUAL,TMA Routine 04/03/2025 10:43 AM EDT Encounter for Papanicolaou smear for cervical cancer screening Encounter for screening examination for sexually transmitted disease PAP SMEAR Routine 04/03/2025 10:43 AM EDT Encounter for Papanicolaou smear for cervical cancer screening BACTERIAL VAGINOSIS PANEL Routine 04/03/2025 10:41 AM EDT Encounter for Papanicolaou smear for cervical cancer screening Encounter for screening examination for sexually transmitted disease from Last 3 Months Results * (ABNORMAL) POCT urinalysis dipstick manually resulted (05/27/2025 1:20 PM EDT) Color, UA Yellow Comment:Dark Clarity, UA Cloudy Glucose, UA Negative Bilirubin, UA Negative Ketones, UA Negative Spec Grav, UA 1.020 Blood, UA Negative Negative, None Detected pH, UA 7.0 Protein, UA Negative Urobilinogen, UA 1.0 Leukocytes, UA Trace Negative, Rare, Trace Nitrite, UA Positive(A) Negative, None Detected Urine 05/27/2025 1:20 PM EDT Starr Doe NP POINT OF CARE TEST ENTER/EDIT O RDERABLES Final Result * TSH W/Reflex to FT4 (04/03/2025 11:18 AM EDT) TSH reflex Free T4 0.55 0.32 - 4.0 uIU/mL [facility] Blood Venous blood specimen / Unknown 04/03/2025 11:18 AM EDT 04/03/2025 1:26 PM EDT James Laird [employer] LAB BLOOD ORDERABLES Nicolasa l Result [facility] [address] [place] [phone] * CBC auto differential (04/03/2025 11:18 AM EDT) White Blood Count 5.4 4.8 - 10.8 X10*3/uL [facility] Red Blood Count 4.65 4.20 - 5.50 X10*6/uL [facility] Hemoglobin 13.1 12.0 - 16.0 g/dl [facility] Hematocrit 39.9 37.0 - 47.0 % [facility] Mean Corpuscular Volume 85.8 80.0 - 98.0 fL [facility] Mean Corpuscular Hemoglobin 28.2 27.0 - 33.0 pg [facility] Mean Corpuscular HGB Conc 32.8 31.0 - 35.0 g/dl [facility] Red Cell Distribution Width 13.1 11.0 - 16.0 % [facility] Platelet Count 276 160 - 400 X10*3/uL [facility] Mean Platelet Volume 11.1 9.4 - 12.3 fL [facility] Neutrophils Percent Auto 56.4 45 - 73 % [facility] Imm Gran Pct Auto 0.2 0.0 - 0.4 % [facility] Lymphocytes Percent Auto 36.1 20 - 40 % [facility] Monocytes Percent Auto 5.2 2 - 11 % [facility] Eosinophils Percent Auto 1.5 0 - 4 % [facility] Basophils Percent Auto 0.6 0 - 2 % [facility] NRBC Pct Auto 0.0 0.0 - 0.2 /100WBC [facility] Neutrophils Absolute Auto 3.1 2.0 - 8.3 x10*3/uL [facility] Imm Gran Abs Auto 0.01 0.00 - 0.03 X10*3/uL [facility] Lymphocytes Absolute Auto 2.0 1.2 - 4.9 X10*3/uL [facility] Monocytes Absolute Auto 0.3 0.1 - 1.2 X10*3/uL [facility] Eosinophils Absolute Auto 0.1 0.0 - 0.4 X10*3/uL [facility] Basophils Absolute Auto 0.0 0.0 - 0.2 X10*3/uL [facility] NRBC Abs Auto 0.000 0.0 - 0.012 X10*3/uL [facility] Blood Venous blood specimen / Unknown 04/03/2025 11:18 AM EDT 04/03/2025 1:26 PM EDT [facility] LAB BLOOD ORDERABLES Nicolasa l Result Performing Organization Address City/[facility]/ZIP Co de Phone Number [facility] [address] [place] [phone] * Hepatitis C Antibody with Reflex to HCV, RNA, Quantitative, Real-Time PCR (04/03/2025 11:18 AM EDT) Hepatitis C Antibody Nonreactive Nonreactive [facility] Comment:Antibodies to HCV no t detected; does not exclude early acuteHCV infection. Blood Venous blood specimen / Unknown 04/03/2025 11:18 AM EDT 04/03/2025 1:26 PM EDT [facility] LAB BLOOD ORDERABLES Nicolasa l Result Performing Organization Address [facility]/ZIP Co de Phone Number [facility] [address] [place] [address] [phone] * RPR (Monitor) with Reflex to??Titer (04/03/2025 11:18 AM EDT) RPR (Monitor) w/Refl Titer NON-REACTI VE NON-REACT LOPEZ [facility] Comment:THIS TEST WAS PERFOR MED AT:[id number] [place] [phone] HUTCHINSON MD Rapid Plasma Reagin Ab Titer TNP [facility] Blood Venous blood specimen / Unknown 04/03/2025 11:18 AM EDT 04/03/2025 1:26 PM EDT [facility] LAB BLOOD ORDERABLES Nicolasa l Result Performing Organization Address City/[facility]/ZIP Co de Phone Number [facility] [address] [place] [phone] * HIV-1/2 Antigen and Antibodies, Fourth Generation, with Reflexes (04/03/2025 11:18 AM EDT) HIV AB/AG Nonreactive Nonreactive [facility] Comment:HIV-1 p24 Ag and/or HIV-1/HIV-2 Ab not detected.A test result that is nonreactive does not exclude thepossibility of exposure to or infection with HIV-1 and/orHIV-2. Nonreactive results in this assay for individualswith prior exposure to HIV-1 and/or HIV-2 may be due toantigen and antibody levels that are below the limit ofdetection of this assay.The [facility] HIV Ag/Ab Combo assay result andsupplemental assay results should be interpreted inconjunction with the patient's clinical presentation,history and other laboratory results. If the results areinconsistent with clinical evidence, additional testing issuggested to confirm the result. Blood Venous blood specimen / Unknown 04/03/2025 11:18 AM EDT 04/03/2025 1:26 PM EDT [facility] LAB BLOOD ORDERABLES Nicolasa garcia Result [facility] [address] [place] [phone] * Hemoglobin A1c (04/03/2025 11:18 AM EDT) Hemoglobin A1c 5.0 <6.0 % [facility] Comment:Hemoglobin A1C Refer ence Range Adults: 4.8 - 6.0 % Non diabetic: < 6.0 % Goal: < 7.0 %Additional Action Suggested: > 8.0 %Note: Hemoglobin A1c results are invalid for patients with abnormal amounts of HbF. Blood transfusions may impact the HbA1c concentration in the patient sample. Estimated Average Glucose 97 mg/dL [facility] Comment:eAG = Estimated ave rage glucose which is %A1C expressed asaverage glucose, using the formula of the C0S-JrllamzMfonjkq Glucose study (ADAG), Diabetes Care, Vol.31,#8,Jun. 2007 Blood Venous blood specimen / Unknown 04/03/2025 11:18 AM EDT 04/03/2025 1:26 PM EDT James Laird [facility] LAB BLOOD ORDERABLES Nicolasa l Result [facility] [address] [place] [phone] * (ABNORMAL) Comprehensive Metabolic Panel (04/03/2025 11:18 AM EDT) Sodium 140 135 - 145 mmol/L [facility] Potassium 4.5 3.3 - 5.1 mmol/L [facility] Chloride 106 96 - 108 mmol/L [facility] Carbon Dioxide 28 22 - 29 mmol/L [facility] Anion Gap 11(L) 12 - 20 [facility] Urea Nitrogen (BUN) 11 9 - 16 mg/dL [facility] Creatinine, Serum 0.69 0.5 - 1.4 mg/dL [facility] Estimated Glomerular Filt Rate >60 [facility] Comment:Chronic Kidney Disea se: Estimated GFR < 60 mL/min/1.80d9Wjhpsy Kidney Disease: Estimated GFR < 15 mL/min/1.73m2 Glucose 89 60 - 115 mg/dL [facility] Calcium 8.9 8.4 - 10.2 mg/dL [facility] Bilirubin, Total 0.4 0.0 - 1.0 mg/dL [facility] Aspartate Amino Transferase 29 5 - 31 U/L [facility] Alanine Aminotransferase 20 0 - 31 U/L [facility] Total Protein 7.1 6.5 - 8.0 g/dL [facility] Albumin Level 4.3 3.5 - 5.0 g/dL [facility] Alkaline Phosphatase 81 39 - 117 U/L [facility] Blood Venous blood specimen / Unknown 04/03/2025 11:18 AM EDT 04/03/2025 1:26 PM EDT [facility] [employer] LAB BLOOD ORDERABLES Nicolasa l Result Performing Organization Address [facility] de Phone Number [facility] [address] [place] [phone] * STI testing add on (NG, CT, Trich) (04/03/2025 10:43 AM EDT) Trichomonas (NAAT) NOT DETECTED NOT DETECTED [facility] Comment:The analytical perfo rmance characteristics of thisassay have been determined by [employer]. Themodifications have not been cleared or approved bythe FDA. This assay has been validated pursuant to theIA regulations and is used for clinical purposes.For additional information, please refer tohttp://education.[employer].com/faq/Trichomonastma(This link is being provided for information/educational purposes only.)THIS TEST WAS PERFORMED AT:[employer] [place] [phone] HUTCHINSON MD CTNG Ref Lab NOT DETECTED NOT DETECTED [facility] NG Ref Lab NOT DETECTED NOT DETECTED [facility] ThinPrep vial Cervix uteri structure / Unknown 04/03/2025 10:43 AM EDT 04/04/2025 10:38 AM EDT Narrative [facility] - 04/06/2025 3:48 PM EDT Collection Date: [id number] by: ROX Gallardo: Cervix [facility] LAB CYTOLOGY ORDERABLES F inal Result Performing Organization Address [facility] Co de Phone Number [facility] [address] [place] [phone] * Pap Smear (04/03/2025 10:43 AM EDT) Swab Cervical swab / Unknown 04/03/2025 10:43 AM EDT 04/04/2025 10:38 AM EDT Narrative [facility] - 04/09/2025 1:41 PM EDT ----- ------- Name: Larissa Pedroza Age/Sex: 24/ : 2000 Unit#: [id number] Attend Dr: James Laird Re04/03/25 Status: DEP REF [facility]: [facility] Disch: ----- ------- SPEC : [id number] RECD: 04/04/25 STATUS: AMANDA PEBBLES NUM: [id number] SHRUTI: 04/03/25-1042 [facility] [address]: James Laird ENTERED: 04/04/25-1043 SP TYPE: Pap Smr RJ DR: ORDERED: Pap Smear Interpretation Satisfactory for evaluation. Negative for intraepithelial lesion or malignancy. No endocervical cells seen. Fungal organisms consistent with Perma species. Clinical Information LMP: Unknown date Previous PAP test: Unknown date/findings Material Received ThinPrep-Cervical ----- ------- Signed (signature on file) JUANITA Batista (ASCP) 04/09/25 1341 ----- ------- END OF REPORT [facility] LAB CYTOLOGY ORDERABLES F inal Result Performing Organization Address [facility]/ZIP Co de Phone Number [facility] [address] [place] [phone] * (ABNORMAL) Bacterial Vaginosis Panel (04/03/2025 10:41 AM EDT) TRICHOMONAS VAGINALIS DETECTION BY PCR NOT DETECTED Not Detect [facility] BACTERIAL VAGINOSIS DETECTION BY PCR POSITIVE(A) Negative [facility] Comment:The BV organism targ ets [...] GROUP DETECTION BY PCR DETECTED(A) Not Detect [facility] Prema glab krusei PCR NOT DETECTED Not Detect [facility] Swab Vaginal structure / Unknown 04/03/2025 10:41 AM EDT 04/03/2025 1:46 PM EDT [facility] LAB MICROBIOLOGY - GENERA L ORDERABLES Final Result Performing Organization Address [facility]/ZIP Co de Phone Number [facility] [address] [place] [phone] [phone] from Last 3 Months Insurance [place] [facility] STANDARD * Guarantor: Larissa De La Garza Account Type Relation to Patient Date of Phone Billing Address Personal/Family Self [place], [place] * Guarantor: Larissa De La Garza Account Type Relation to Patient Date of Phone Billing Address Personal/Family Self [place], [place] * Guarantor: Larissa De La Garza Account Type Relation to Patient Date of Phone Billing Address Personal/Family Self [place], [place] Care Teams Casting Supervisor Relationship Specialty Start Date End Date Edith Steel MD [address] [place] [phone] PCP - General Family Medicine 01/28/21
--- OUTSIDE RECORDS SUMMARY | 2025-05-28 13:12 | XMS_ITS | Clinical Summary ---
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
== END 2025-05-27 00:01 | disposition home or self-care (01) ==
LOC: HO.HHCLNP
PROVIDERS: Visit Provider Nurse Practitioner
DX: R39.9 Unspecified symptoms and signs involving the genitourinary system (principal)
CPT/HCPCS: 87086; 87088; 87186

== ENCOUNTER 2025-07-02 17:34 | Outpatient (REF) | payer MEDICAID, SELFPAY ==
--- OUTSIDE RECORDS SUMMARY | 2025-07-02 17:36 | XMS_ITS | Clinical Summary ---
Author Organization [facility] Address [address] [place] [address] Care Team Providers Care Certified Medical Biller Name Role Phone Unavailable Primary Care Provider [...] Cervical Cancer Screening: P ap Smear 2022 Hepatitis C Screening 10/20/2022 Social Influencers of Health Screening 10/20/2022 COVID-19 Vaccine (1 - 2023-2 5 season) 2024 Depression Screening 11/21/2024 Influenza Vaccine (#1) 2025 DTaP,Tdap,and Td Vaccines [...]
== END 2025-07-02 17:35 | disposition home or self-care (01) ==
LOC: HO.HHCLNP 17:34
PROVIDERS: Visit Provider Family Medicine
DX: N39.0 Urinary tract infection, site not specified (principal)
CPT/HCPCS: 87086